=== PATIENT | male | born 1985 | race Caucasian/White ===

== ENCOUNTER 2020-09-21 14:26 | Emergency (ER) | payer BC, SELFPAY ==
[2020-09-21 14:40] VITALS: BP 155/93; PULSE 92; RESP 18; TEMP 37; O2SAT 98
--- NOTE | 2020-09-21 15:00 | ED.GENADULT ---
HPI - General Adult General Chief complaint: Fever Stated complaint: Fever Time Seen by Provider: 09/21/20 15:00 Source: patient Mode of arrival: ambulatory Limitations: no limitations History of Present Illness HPI narrative: 35-year-old male patient presents to the [facility] with complaints of cold symptoms for the past 2 weeks. Patient states he has had nasal congestion, runny nose, fever that has gotten only as high as about 100. Patient states he has had a little bit of a cough and did have a little bit of shortness of breath at times but he does have history of asthma. Patient states he did use an albuterol inhaler every once a while but has not had to use it daily. Patient denies any shortness of breath or chest pain. Patient states he did have to use his albuterol neb treatment 1 time last week but has not had to use it since then. Denies any abdominal pain, nausea vomiting or diarrhea. Denies any pain with urination. Patient denies smoking or any other drugs. Patient states that his girlfriend does smoke in the house. Patient states he has tried some [id number] allergy and cough medication. Patient states he has had a Covid test this past Sunday which came back negative. Patient states that he has quarantine for the 10 days from onset of symptoms which is now completed. Related Data Allergies Allergy/AdvReac Type Severity Reaction Status Date / Time Penicillins Allergy Severe throat Verified 12/29/14 13:08 closes up Review of Systems Review of Systems: Narrative: CONSTITUTIONAL: Positive fever, denies chills, or sweats. EYES: Denies visual changes, redness, or discharge. ENT: Positive rhinorrhea, congestion, denies sore throat, or otalgia. CARDIOVASCULAR: Denies chest pain, palpitations, or edema. RESPIRATORY: Positive mild nonproductive cough positive intermittent dyspnea. GASTROINTESTINAL: Denies abdominal pain, nausea, vomiting, or diarrhea. GENITOURINARY: Denies dysuria or hematuria. SKIN: Denies rash or itching. MUSCULOSKELETAL: Denies back pain, joint pain, or myalgia. NEUROLOGIC: Denies headache, numbness, or weakness. PSYCHIATRIC: Denies anxiety or depression. FOR[facility]LY [facility] Past Medical History Medical History (Updated 09/21/20 @ 15:19 by MARIELLE Peraza) Asthma Hypertension Noncompliant with medications Scoliosis Social History Social History Gender identity (if verbalized by the patient): Male Comments At the time of my signature I agree with nursing past medical history, surgical, social, and family history. There is no relevant family history pertinent to the presenting complaint. Exam Narrative: Exam Narrative: GENERAL: Well-appearing, well-nourished, and in no acute distress. HEAD: Normocephalic, atraumatic. No tenderness noted to frontal or maxillary sinuses on palpation EYES: PERRLA and EOMI. ENT: Nares with erythema and edema noted bilaterally with the right nare swollen shut, no rhinorrhea or epistaxis. Mucous membranes moist. Posterior pharynx with no erythema but a little bit of postnasal drip is noted. Bilateral TMs are clear no erythema or foreign bodies to the canal. NECK: Supple. No lymphadenopathy CHEST: Clear to auscultation. No respiratory distress. Patient able talk clear complete sentences. No tripoding noted. HEART: Regular rate and rhythm. No murmur heard. Normal peripheral pulses. ABDOMEN: Soft, nontender, nondistended, normal active bowel sounds. EXTREMITIES: Normal range of motion. No edema. SKIN: Warm, dry, no rash. NEURO: No focal deficits. Alert and oriented x3. Course Vital Signs Vital signs: Vital Signs Temperature 37.0 C 09/21/20 14:40 Pulse Rate 92 09/21/20 14:40 Respiratory Rate 18 09/21/20 14:40 Blood Pressure 155/93 H 09/21/20 14:40 Pulse Oximetry 98 09/21/20 14:40 Temperature 37.0 C 09/21/20 14:40 Pulse Rate 92 09/21/20 14:40 Respiratory Rate 18 09/21/20
== END 2020-09-21 15:25 | disposition home or self-care (01) ==
PROVIDERS: Emergency Provider Nurse Practitioner Family
DX: J32.9 Chronic sinusitis, unspecified (principal); J06.9 Acute upper respiratory infection, unspecified; J45.909 Unspecified asthma, uncomplicated; I10 Essential (primary) hypertension; Z91.14 Patient's other noncompliance with medication regimen; M41.9 Scoliosis, unspecified
CPT/HCPCS: 87804; 99213; G0463

== ENCOUNTER 2023-11-26 15:46 | Emergency (ER) | payer SELFPAY ==
--- NOTE | 2023-11-26 15:50 | ED.GENADULT ---
HPI - General Adult General Chief complaint: Head Injury Stated complaint: Injured head Time Seen by Provider: 11/26/23 15:50 Source: patient, RN notes reviewed and old records reviewed Mode of arrival: ambulatory Limitations: no limitations History of Present Illness HPI narrative: [age] presents to the [facility] after hitting his head on a shelf. Denies any blurry vision, change in vision. Denies any loss of consciousness. Bleeding controlled Unsure of last tetanus Onset (ago): minute(s) Related Data Home Medications Medication Instructions Recorded Confirmed telmisartan 40 mg tablet 40 mg PO DAILY 11/26/23 11/26/23 trazodone 100 mg tablet 100 mg PO HS PRN Sleep 11/26/23 11/26/23 Allergies Allergy/AdvReac Type Severity Reaction Status Date / Time Penicillins Allergy Severe throat Verified 11/26/23 15:52 closes up Review of Systems Review of Systems: All systems reviewed & are unremarkable except as noted in HPI and below Constitutional: Constitutional: Reports no additional constitutional complaints Eyes: Eyes: Reports no additional eye complaints ENT: Reports system reviewed and no additional complaints, except as documented Cardiovascular: Cardiovascular: Reports no additional cardiovascular complaints, Denies chest pain and Denies dyspnea Respiratory: Respiratory: Reports no additional respiratory complaints, Denies chest congestion, Denies cough and Denies dyspnea Gastrointestinal: Gastrointestinal: Reports no additional gastrointestinal complaints, Denies abdominal pain, Denies nausea and Denies vomiting Musculoskeletal: Musculoskeletal: Reports no additional musculoskeletal complaints Integumentary/Breasts: Skin/Breast: Reports as per HPI Neurologic: Reports system reviewed and no additional complaints, except as documented Psychiatric: Psychiatric: Reports no additional psychiatric complaints Allergic/Immunologic: Allergic/Immunologic: Reports no additional allergic/immunologic complaints PMFSH Past Medical History Medical History Asthma Hypertension Noncompliant with medications Scoliosis Social History Social History Gender identity (if verbalized by the patient): Male Comments At the time of my signature, I reviewed and agree with the nursing past medical, surgical, social, and family history. There is no relevant family history pertinent to the patient complaint. Exam Const: General: cooperative, healthy appearing, comfortable, no acute distress, well developed, alert and well nourished Nutritional Appearance: well nourished Orientation/consciousness: patient oriented x3 Limitations: no limitations HENMT: Head: normal to inspection, No palpable skull fracture present, no hematomas and laceration (Top of head left side, 4 cm) Ears: hearing grossly normal bilaterally and external ears normal Face/Nose/Sinus: Normal external nose present, Normal nares present, Normal nasal mucous membranes and turbinates present, normal facial exam and face symmetric Face and sinus: normal facial exam and face symmetric Mouth: Yes Normal oral and palatal mucosa present, Yes lip normal and Yes moist mucous membranes Throat: posterior oropharynx normal and uvula midline Eyes: General: appearance normal, both eyes and all related structures Alignment and Position: alignment normal Periorbital: periorbital findings normal Pupils: Equal, round and reactive pupils present EOM: EOMs intact bilaterally Neck: Neck: normal visual inspection, full ROM, no lymphadenopathy and no meningeal signs Chest: Chest palpation & inspection: normal inspection of the chest Resp: Effort & Inspection: normal respiratory effort and able to speak in complete sentences Auscultation: clear to auscultation bilaterally, no crackles, no rales, no rhonchi and no wheezes Cardio: Rate: regular rate Rhyt
[2023-11-26 15:54] VITALS: BP 144/108; PULSE 108; RESP 20; TEMP 36.5; O2SAT 100
[2023-11-26] MEDS: TETANUS,DIPHTHERIA,AC PERTUSSIS ADULT (0.5 ML) BOOSTRIX IM (16:16)
== END 2023-11-26 16:29 | disposition home or self-care (01) ==
PROVIDERS: Emergency Provider Nurse Practitioner
DX: S01.01XA Laceration without foreign body of scalp, initial encounter (principal); S09.90XA Unspecified injury of head, initial encounter; W22.09XA Striking against other stationary object, initial encounter; Z23 Encounter for immunization; J45.909 Unspecified asthma, uncomplicated; I10 Essential (primary) hypertension; Z91.148 Patient's other noncompliance with medication regimen for other reason; M41.9 Scoliosis, unspecified
CPT/HCPCS: 12002; 90471; 90715; 99212; G0463

== ENCOUNTER 2024-11-18 01:47 | Emergency (ER) | payer BC, SELFPAY ==
[2024-11-18 02:09] LABS: Basophils Absolute Auto 0.1 K/mm3 (0.0-0.1); Basophils Percent Auto 0.5 % (0.2-1.2); Eosinophils Absolute Auto 0.4 K/mm3 (0-0.3); Eosinophils Percent Auto 3.3 % (0-4.4); Hematocrit 45.9 % (42.0-52.0); Hemoglobin 15.8 g/dL (14.0-18.0); Immature Granulocyte Absolute 0.05 K/mm3 (0.00-0.031); Immature Granulocyte Percent A 0.4 % (0-0.5); Lymphocytes Absolute Auto 3.01 K/mm3 (0.9-3.2); Lymphocytes Percent Auto 25.8 % (18.3-44.2); Mean Corpuscular HGB Conc 34.4 g/dl (32-36); Mean Corpuscular Hemoglobin 31.9 pg (26-34); Mean Corpuscular Volume 92.5 fl (80-100); Mean Platelet Volume 10.1 fl (7.4-10.4); Monocytes Absolute Auto 0.8 K/mm3 (0.1-0.6); Monocytes Percent Auto 7.2 % (2.6-8.5); Neutrophils Absolute Auto 7.3 K/mm3 (1.3-6.7); Neutrophils Percent Auto 62.8 % (45.5-73.1); Platelet Count Result 311 k/mm3 (150-375); Red Blood Count 4.96 M/mm3 (4.6-6.20); Red Cell Distribution Width 12.7 % (11.5-14.5); White Blood Count 11.7 K/mm3 (4.5-10.0)
[2024-11-18 02:20] LABS: Alanine Aminotransferase 55 U/L (6-50); Albumin Level 4.2 g/dL (3.5-5.1); Alkaline Phosphatase 104 U/L (38-126); Anion Gap 5 mmol/L (4-12); Aspartate Amino Transferase 57 U/L (17-59); Bilirubin,Total 0.7 mg/dL (0.2-1.3); Blood Urea Nitrogen 14 mg/dL (9-20); Carbon Dioxide 25 mmol/L (22-30); Chloride 109 mmol/L (98-107); Estimated CRCL calculation 115 ml/min; Estimated Glomerular Filt Rate > 60; Glucose 86 mg/dL (65-110); Lipase 311 U/L (23-300); Potassium 3.8 mmol/L (3.4-5.0); Sodium 139 mmol/L (137-145)
[2024-11-18 02:31] LABS: Add Urine Microscopic? YES; Appearance Urine Clear (Clear); Bilirubin Urine Negative (Negative); Blood Urine Negative (Negative); Color Urine Yellow (Yellow); Glucose Urine UA Negative (Negative); Ketones Urine Negative (Negative); Leukocyte Esterase Ur 1+ LEU/UL (Negative); Nitrate Urine Negative (Negative); Non Pathogenic Casts 0-2; Protein Urine Trace mg/dL (Negative); RBC Urine 0-2 /hpf (0-2); Specific Grav Ur 1.025 (1.001-1.035); Squamous Epithelial Cell Urine Occasional /hpf (Few); WBC Urine 51-100 /hpf (0-3); pH Urine 5.5 (5.0-9.0)
[2024-11-18 02:34] LABS: Bacteria Urine Trace /hpf
[2024-11-18 05:34] VITALS: BP 129/88; PULSE 71; RESP 16; TEMP 36.3; O2SAT 99
[2024-11-18 06:34] VITALS: BP 139/94; PULSE 66; RESP 15; O2SAT 98
--- NOTE | 2024-11-18 08:25 | ED_ITS ---
HPI - Back Pain/Injury General Chief Complaint: Back Pain/Injury Stated Complaint: pain right back in kidney area Time Seen by Provider: 11/18/24 08:06 Source: patient Mode of arrival: ambulatory Limitations: no limitations History of Present Illness HPI Narrative: Patient presents with right back/flank pain. He was seen at [facility] for the same on Sunday and states he had a CT with contrast performed but no reason for his symptoms was identified and he continues to have pain, now consistent and not getting better. Pain slightly worse with rotational movement. History of scoliosis for which surgery had been recommended at one point but he is deferring/declining/opting to not proceed with at present. Previous history of a kidney stone approximately 5-6 years ago requiring a stent x1 week and 2 additional procedures to be performed. This was done by a urologist at [facility] but he does not routinely follow with them. No fever, hematuria/dysuria/urgency/frequency. No history of UTI or pyelonephritis. No trauma, malignancy, bowel/bladder incontinence, saddle anesthesia, paresthesias, abdominal pain, chronic steroid use, IVDU, syncope. States the pain feels similar to when he had a kidney stone. Has been taking naproxen though last dose was yesterday. Related Data Home Medications ?Medication ?Instructions ?Recorded ?Confirmed ?Last Taken ?Type telmisartan 40 mg tablet 40 mg PO DAILY 11/26/23 11/26/23 Unknown History trazodone 100 mg tablet 100 mg PO HS PRN Sleep 11/26/23 11/26/23 Unknown History Allergies Allergy/AdvReac Type Severity Reaction Status Date / Time Penicillins Allergy Severe throat Verified 11/18/24 06:35 closes up PMFSH Past Medical History Medical History Kidney stone approximately [id number] at [facility]; s/p stent (subsequently removed) and additional procedure Scoliosis Asthma Hypertension Noncompliant with medications Social History Social History Gender identity (if verbalized by the patient): Male Exam 2 Narrative: GENERAL: Well-appearing, well-nourished, and in no acute distress. HEAD: Normocephalic, atraumatic. EYES: Non injected, non icteric ENT: Nares clear, no rhinorrhea or epistaxis. NECK: Supple. CHEST: Speaking in full sentences. No respiratory distress. HEART: Regular rate and rhythm. . BACK: No bony stepoffs or obvious deformities. No TTP midline. Demonstrates flexion/extension and rotational movement. Straight leg test negative bilaterally. : Right CVA tenderness; negative left CVA tenderness ABDOMEN: Soft, nondistended. EXTREMITIES: Normal range of motion. No lower extremity edema. SKIN: Warm, dry, no rash. NEURO: No focal deficits. Alert and oriented x3. sensation intact throughout lower extremities and along back. 5/5 strength bilaterally with ankle dorsi/plantarflexion, knee flexion/extension, hip flexion/abduction/adduction PSYCH: Normal mood and affect. Course Vital Signs Vital signs: Vital Signs Temperature 97.3 F L 11/18/24 05:34 Pulse Rate 71 11/18/24 05:34 Respiratory Rate 16 11/18/24 05:34 Blood Pressure 129/88 11/18/24 05:34 Pulse Oximetry 99 11/18/24 05:34 Temperature 97.3 F L 11/18/24 05:34 Pulse Rate 60 11/18/24 09:25 Respiratory Rate 16 11/18/24 09:25 Blood Pressure 139/90 11/18/24 09:25 Pulse Oximetry 99 11/18/24 09:25 MDM - Back Pain/Injury MDM Narrative Medical decision making narrative: Patient presents with right sided flank/back pain. He was seen at [facility] ED for the same on Sunday and underwent CT imaging which did not identify an etiology. In the emergency department they are afebrile with vital signs within normal limits. Back has no deformities, external skin changes, or signs of trauma. No tenderness is noted on palpation of the spinous processes which are midline. Lumbar paraspinal muscles are not tender and are without spasm. Patient demonstrates flexion, extension, and [id number] rotation of the lumbar spine. Sensation to the lower extremities is normal bilaterally. Dorsi/plantar flexion is normal bilaterally. Straight leg raise test is negative bilaterally. They do not have any other red flags for fracture, infection (e.g. spinal epidural abscess), or aortic/vascular: Age, no trauma, not on chronic steroids, no cancer, no fever, IV drug use, immunosuppression, abdominal pain, tearing pain, syncope, or urinary symptoms. Given this, will defer further imaging at this time. Patient's urine has trace bacteriuria as well as 1+ leukocyte esterase and significant white blood cells. This is concerning for a UTI which I suspect has become pyelonephritis especially given patient's location and description of right flank pain and his CVA tenderness on the right. He also has a leukocytosis. He had a negative CT scan at [facility] by report and does not have hematuria either grossly or microscopically. Low suspicion for kidney stone at this time given these things. Opiate medication initially ordered for patient but he declines. Will give ketorolac instead. Patient given first dose of antibiotic in the ED with the rest of the course prescribed in addition to acetaminophen Rx. advised follow up and ED return precautions. Differential Diagnosis Differential diagnosis: Likely lumbar radiculopathy, sciatica, strain of lumbar region, renal colic and pyelonephritis Lab Data Attestation: I reviewed the patient's lab results. Lab results narrative: Lipase slightly elevated though not to a degree to suggest pancreatitis and this is not patient's location of pain 11/18/24 01:58 11/18/24 01:58 Labs: Lab Results 11/18/24 11/18/24 Range/Units 01:58 02:20 WBC 11.7 H (4.5-10.0) K/mm3 RBC 4.96 (4.6-6.20) M/mm3 Hgb 15.8 (14.0-18.0) g/dL Hct 45.9 (42.0-52.0) % MCV 92.5 (80-100) fl MCH 31.9 (26-34) pg MCHC 34.4 (32-36) g/dl RDW 12.7 (11.5-14.5) % Plt Count 311 (150-375) k/mm3 MPV 10.1 (7.4-10.4) fl Immature Gran % (Auto) 0.4 (0-0.5) % Neut % (Auto) 62.8 (45.5-73.1) % Lymph % (Auto) 25.8 (18.3-44.2) % Bailey % (Auto) 7.2 (2.6-8.5) % Eos % (Auto) 3.3 (0-4.4) % Baso % (Auto) 0.5 (0.2-1.2) % Lymph # (Auto) 3.01 (0.9-3.2) K/mm3 Bailey # (Auto) 0.8 H (0.1-0.6) K/mm3 Eos # (Auto) 0.4 H (0-0.3) K/mm3 Baso # (Auto) 0.1 (0.0-0.1) K/mm3 Abs Immat Gran (auto) 0.05 H (0.00-0.031) K/mm3 Absolute Neuts (auto) 7.3 H (1.3-6.7) K/mm3 Absolute Nucleated RBC 0.000 (0.0-0.012) K/mm3 Nucleated RBC % 0.0 (0.0-0.2) % Sodium 139 (137-145) mmol/L Potassium 3.8 (3.4-5.0) mmol/L Chloride 109 H (98-107) mmol/L Carbon Dioxide 25 (22-30) mmol/L Anion Gap 5 (4-12) mmol/L BUN 14 (9-20) mg/dL Creatinine 0.90 (0.7-1.3) mg/dL Estim Creat Clear Calc 115 ml/min Estimated GFR > 60 (59 - ) Glucose 86 (65-110) mg/dL Calcium 9.0 (8.4-10.2) mg/dL Total Bilirubin 0.7 (0.2-1.3) mg/dL AST 57 (17-59) U/L ALT 55 H (6-50) U/L Alkaline Phosphatase 104 (38-126) U/L Total Protein 8.0 (6.3-8.2) g/dL Albumin 4.2 (3.5-5.1) g/dL Lipase 311 H (23-300) U/L Urine Color Yellow (Yellow) Urine Appearance Clear (Clear) Urine pH 5.5 (5.0-9.0) Ur Specific Cutler 1.025 (1.001-1.035) Urine Protein Trace (Negative) mg/dL Urine Glucose (UA) Negative (Negative) mg/dL Urine Ketones Negative (Negative) mg/dL Ur Blood (Man) Negative (Negative) Urine Nitrate Negative (Negative) Urine Bilirubin Negative (Negative) Urine Urobilinogen 1.0 (<2.0) mg/dL Leukocyte Esterase Rfl 1+ H (Negative) L[place]ON/UL Urine RBC 0-2 (0-2) /hpf Urine WBC 51-100 H (0-3) /hpf Ur Squamous Epith Cells Occasional (Few) /hpf Urine Bacteria Trace /hpf Urine Casts 0-2 Discharge Plan Discharge Clinical Impression: Right-sided back pain, Elevated ALT measurement, Pyelonephritis, Leukocytosis Patient Disposition: Home, Self-Care Condition: Stable Instructions: Antibiotic Form, Kidney Infection (ED), Leukocytosis (ED), Flank Pain (ED) Additional Instructions: Acetaminophen/Tylenol (maximum 4000 mg per day) is safe to take with NSAIDs (ibuprofen/Motrin/naproxen/etc) for pain relief. Your urine was concerning for an infection based on some trace bacteria seen as well as white blood cells and a byproduct the bacteria make. When a urinary tract infection a since to the kidney we call this pyelonephritis. This is treated like a urinary tract infection but with a longer duration of antibiotic course. You received your 1st dose in the emergency department with rest the course prescribed. You will be notified if based on the urine culture this antibiotic needs to be changed to an alternative regimen in the next 48-72 hours. Follow-up with primary care physician. If you do not have 1 the name of the doctors listed below. Return to the emergency department with any new or worsening symptoms. Patient Language: Romanian Prescriptions: New sulfamethoxazole-trimethoprim [Bactrim DS] 800-160 mg tablet 1 tablet PO Q12H 14 Days Qty: 27 0RF Rx Instructions: Patient received 1st dose in the emergency department 11/18/2024 a.m. acetaminophen 500 mg capsule 1,000 mg PO Q6H PRN (Reason: pain) Qty: 30 0RF No Action trazodone 100 mg tablet 100 mg PO HS PRN (Reason: Sleep) telmisartan 40 mg tablet 40 mg PO DAILY Follow-up/Referrals: Prashanth Alamo MD [Physician] - UNKNOWN,DOCTOR [Primary Care Provider] - Stand Alone Forms: Work/School Release IP Time of Disposition: 08:47
[2024-11-18] MEDS: SULFAMETHOXAZOLE/TRIMETHOPRIM 800/160 MG DS TABLET 1 TAB PO (08:56)
[2024-11-18] MEDS: KETOROLAC 15 MG/ML VIAL (*BKC) IV PUSH (09:18)
[2024-11-18 09:25] VITALS: BP 139/90; PULSE 60; RESP 16; O2SAT 99
--- OUTSIDE RECORDS SUMMARY | 2024-11-25 02:28 | XMS_ITS | Encounter Summary ---
Author Organization [facility] Address [address] [place] [address] Care Team Providers Care Machine Maintenance Supervisor Name Role Phone Unavailable Primary Care Provider Unavailabl e Reason for Visit * Reason Comments Flank Pain Right sided flank pa in began last night. Hx of kidney stones. Pain feels the same. Denies nausea, vomiting, fever and urinary symptoms. * Auth/Cert (Routine) Specialty Diagnoses / Procedures Referred By Contac t Referred To Contact Emergency Medicine [facility] Emergency Dept [address] [place] [address] Referral ID Status Reason Start Date Expiration Date Visits Re quested Visits Authorized [id number] 1 1 Encounter Details Date Type Department Care Team (Late st Contact Info) Description 11/15/2024 7:12 AM SIMULATION TECHNICIAN - 11/15/2024 9:27 AM [facility] Emergency [facility] Emergency Department [address] [place] [address] [place] [address] [place] [id number] Flank pain (Primary Dx) Discharge Disposition: Home or Self Care Social History Tobacco Use Types Packs/Day Years Used Date Smoking Tobacco: Never Alcohol Use Standard Drinks/Week Comments Not Currently 0 (1 standard drink = 0.6 oz pur e alcohol) Feeling Safe Answer Date Recorded Are you in a relationship wi th someone who hurts you emotionally and/or physically? No 11/13/2024 Sex and Gender Information Value Date Recorded Sex Assigned at Not on file Gender Identity Not on file Sexual Orientation Not on file documented as of this encounter Last Filed Vital Signs Vital Sign Reading Time Taken Comments Blood Pressure 121/88 11/15/2024 8:30 AM SIMULATION TECHNICIAN Pulse 57 11/15/2024 8:30 AM SIMULATION TECHNICIAN Temperature 36.6 ??C (97.8 ??F) 11/15/2024 9:08 AM CS T Respiratory Rate 16 11/15/2024 8:30 AM SIMULATION TECHNICIAN Oxygen Saturation 96% 11/15/2024 8:30 AM SIMULATION TECHNICIAN Inhaled Oxygen Concentration - - Weight 102.1 kg (225 lb) 11/15/2024 6:16 AM SIMULATION TECHNICIAN Height 175.3 cm (5' 9 ) 11/15/2024 6:16 AM SIMULATION TECHNICIAN Body Mass Index 33.23 11/15/2024 6:16 AM SIMULATION TECHNICIAN documented in this encounter Discharge Instructions * Discharge Instructions* Ron Meehan DO - 11/15/2024 8:48 AM SIMULATION TECHNICIAN Ice/moist heat to area 10 minutes every 2 hours Rx attached We will send a urine culture and notify you if there is positive results. You have been educated on red flags and returning criteria construction worker to assist with PCP LATION TECHNICIAN * Attachments The following attachments cannot be sent through Care Everywhere. * Flank Pain (Northern Irish) documented in this encounter Medications at Time of Discharge Medication Sig Dispensed Refills Start Date End Date naproxen (NAPROSYN) 375 mg tablet Take 1 Tablet (375 mg) by mouth 2 times daily with meals for 7 days. 14 Tablet 11/15/2024 11/22/2024 tamsulosin (FLOMAX) 0.4 mg capsule Take 1 Capsule (0.4 mg) by mouth daily for 7 days. 7 Capsule 11/15/2024 11/22/2024 documented as of this encounter ED Notes * Nas Guido RN - 11/15/2024 9:08 AM CST Discharge paperwork reviewed with patient. Patient verbalizes understanding. All questions answered. LATION TECHNICIAN * Nas Guido RN - 11/15/2024 8:34 AM CST Shefali CAMARILLO at bedside with update on POC. LATION TECHNICIAN * Ron Meehan, DO - 11/15/2024 7:28 AM CST HISTORY OF PRESENT ILLNESS Documented Triage Chief Complaint: Flank pain 7:28 AM: Kelvin Beckham is a 39 y.o. male with a history of kidney stone, HTN, asthma, who presents tot Emergency Department with complaints of flank pain. Pt reports R flank pain beginning yesterday, but states it worsened last night at work. Pt states the pain does not radiate and stays in his R flank. Pt reports he had kidney stones 5-6 years ago, and states that this pain feels similar. Pt denies any nausea, vomiting, or diarrhea. Pt reports an allergy to penicillin. Physician(s): No primary care provider on file. History provided by: The patient and medical records Arrived by: Private vehicle Arrived from: Home PAST MEDICAL HISTORY REVIEWED MEDICAL: Patient has a past medical history of Asthma, Hypertension, and Kidney stone. SURGICAL: Patient has no past surgical history on file. ALLERGIES Penicillins PHYSICAL EXAM INITIAL VS BP: (!) 140/102 (11/15/24615), Heart Rate: 60 bpm (11/15/24615), Resp: 20 (11/15/24615), Pulse: 60 (11/15/24615), Temp: 97.4 ??F (36.3 ??C) (11/15/24615), Temp src: Oral (11/15/24615), SpO2: 100 % (11/15/24615), Height: 5' 9 (175.3 cm) (11/15/24615), Weight: 102.1 kg (225 lb) (11/15/24615), BMI (Calculated): (!) 33.22 (11/15/24615) No LMP for male patient. Physical Exam Vitals reviewed. HENT: Head: Normocephalic and atraumatic. Right Ear: External ear normal. Left Ear: External ear normal. Nose: Nose normal. Eyes: Conjunctiva/sclera: Conjunctivae normal. Pupils: Pupils are equal, round, and reactive to light. Neck: Thyroid: No thyromegaly. Vascular: No JVD. Trachea: No tracheal deviation. Cardiovascular: Rate and Rhythm: Normal rate and regular rhythm. Heart sounds: No murmur heard. Pulmonary: Effort: Pulmonary effort is normal. Breath sounds: Normal breath sounds. No stridor. Abdominal: General: Bowel sounds are normal. There is no distension. Palpations: Abdomen is soft. There is no mass. Tenderness: There is no abdominal tenderness. There is no right CVA tenderness, left CVA tenderness, guarding or rebound. Hernia: No hernia is present. Comments: No pulsatile mass Genitourinary: Penis: Normal. Testes: Normal. Musculoskeletal: General: No swelling, tenderness, deformity or signs of injury. Cervical back: Normal range of motion and neck supple. Right lower leg: No edema. Left lower leg: No edema. Lymphadenopathy: Cervical: No cervical adenopathy. Skin: General: Skin is warm and dry. Neurological: Mental Status: He is alert and oriented to person, place, and time. Cranial Nerves: No cranial nerve deficit. Sensory: No sensory deficit. Motor: No abnormal muscle tone. Coordination: Coordination normal. Deep Tendon Reflexes: Reflexes normal. Psychiatric: Behavior: Behavior normal. DIAGNOSTICS LAB: URINALYSIS WITH REFLEX MICROSCOPIC - Abnormal Result Value COLOR UA Yellow CLARITY UA Clear SPECIFIC GRAVITY UA 1.021 PH UA 5.0 LEUKOCYTE ESTERASE UA 1+ (*) NITRITE UA Negative PROTEIN UA Negative GLUCOSE UA Negative KETONES UA Trace (*) UROBILINOGEN UA Normal BILIRUBIN UA Negative BLOOD UA Negative WBC UA 26-50 (*) RBC UA 3-5 (*) BACTERIA UA Negative EPITHELIAL CELLS, URINE 0-5 CBC WITH DIFFERENTIAL - Abnormal WBC 12.5 (*) RBC 4.72 HEMOGLOBIN 14.9 HEMATOCRIT 43.4 MCV 91.9 MCH 31.6 MCHC 34.3 RDW 13.0 RDW-STDEV 44.1 PLATELETS 314 MPV 9.8 NEUTROPHILS 64 LYMPHOCYTES 24 MONOCYTES 8 EOSINOPHILS 4 BASOPHILS 1 IMMATURE GRANULOCYTES 0 NEUTROPHIL ABSOLUTE 7.94 (*) LYMPHOCYTE ABSOLUTE 2.95 MONOCYTE ABSOLUTE 0.98 EOSINOPHIL ABSOLUTE 0.49 BASOPHILS ABSOLUTE 0.06 IMMATURE GRANULOCYTES ABSOLUTE 0.05 (*) COMPREHENSIVE METABOLIC PANEL - Abnormal SODIUM 137 POTASSIUM 3.7 CHLORIDE 101 CO2 27 CALCIUM 9.7 BUN 17 CREATININE 0.98 GLUCOSE 94 TOTAL PROTEIN 7.8 ALBUMIN 4.4 BILIRUBIN TOTAL 0.6 ALKALINE PHOSPHATASE 112 AST 50 (*) ALT 51 (*) GFR >60 ANION GAP 9 POC CREATININE - Normal CREATININE POC 1.10 GFR POC >60 URINE CULTURE DRUG SCREEN, URINE POC CREATININE RADIOLOGY: CT ABDOMEN PELVIS W CONTRAST Radiologist Impression IMPRESSION: Multiple bilateral nonobstructing renal calculi seen, greater on the left. No evidence of obstructive uropathy. Mild bladder wall thickening may be related to underdistention. Mild cortical irregularity of the right L2 transverse process may represent an acute fracture given the patient's history of right flank pain. Clinical correlation recommended. The examination was performed with the adjustment of mA according to the patient size and/or the use of Iterative Reconstruction Technique. DICTATION LOCATION: Location 1 - [facility] \ PROCEDURES Procedures MEDICAL DECISION MAKING AND PLAN OF CARE --On initial evaluation, saw and examined the patient. Discussed plan for labs and imaging. ED provider and ED nurse verbally discussed patient plan of care at this time. ED Course as of 11/15/24 0925 Sat Nov 15, 2024 0824 CBC white count 12.5. Hemoglobin 14.9. CMP normal. Creatinine 1.1. Urine illustrates 1+ leukocytes. 26-50 white cells. No bacteria. Will send culture. Nitrates normal. Reviewed CT imaging no acute kidney stone or acute base findings. Toradol given. [PP] 7198 Educated patient on his lab and imaging results. Discussed plan for discharge. [SH] ED Course User Index [PP] Ron Meehan DO [SH] Osbaldo Holguin Scribe Medical Decision Making 39-year-old with history of kidney stones. Flank pain. Clinical examination illustrates no acute findings. Urine with a few white cells we will send culture no treatment at this time. Educated patient. Labs/CT imaging with no acute base findings. Will Rx with outpatient follow-up. construction worker assistance with PCP. Educated on red flags and returning criteria Amount and/or Complexity of Data Reviewed Labs: ordered. Decision-making details documented in ED Course. Radiology: ordered and independent interpretation performed. Decision-making details documented in ED Course. Risk Prescription drug management. Clinical Scoring & Consults Medications Administered During the ED Stay from 11/15/2024 0604 to 11/15/2024 0925 Date/Time Order Dose Route Action 11/15/2024 0730 SIMULATION TECHNICIAN sodium chloride 0.9% bolus solution 1,000 mL 1,000 mL IV Bolus 11/15/2024 0753 SIMULATION TECHNICIAN sodium chloride flush injection 10 mL 10 mL IV Given 11/15/2024 0753 SIMULATION TECHNICIAN iopamidoL (ISOVUE-300) 61% injection (drawn from multi-use bulk pack) 100 mL 100 mL IV Contrast Given 11/15/2024 0815 SIMULATION TECHNICIAN ketorolac (TORADOL) injection 10 mg 10 mg IV Given . New Prescriptions for this Encounter NAPROXEN (NAPROSYN) 375 MG TABLET Take 1 Tablet (375 mg) by mouth 2 times daily with meals for 7 days. TAMSULOSIN (FLOMAX) 0.4 MG CAPSULE Take 1 Capsule (0.4 mg) by mouth daily for 7 days. LAST VS BP: 121/88 (11/15/24829), Heart Rate: (!) 57 bpm (11/15/24829), Resp: 16 (11/15/24829), Pulse: (!) 57 (11/15/24829), Temp: 97.8 ??F (36.6 ??C) (11/15/24907), Temp src: Oral (11/15/24907),SpO2: 96 % (11/15/24829) CLINICAL IMPRESSION Final diagnoses: [R10.9] Flank pain (Primary) DISPOSITION, EDUCATION AND MEDICATION RECONCILIATION Medications reconciled. See after visit summary for patient education on discharged patients. ED Disposition ED Disposition Discharge Condition Stable User Ron Meehan DO Date/Time Sat Nov 15, 2024 8:47 AM Comment -- ATTESTATION STATEMENTS This note has been prepared by Osbaldo Holguin acting as a scribe for Dr. Ron Meehan on 11/15/2024 at 7:33 AM. The scribe's documentation has been prepared under my direction and personally reviewed by me,, in its entirety on 11/15/24 at 9:25 AM. I confirm that the note above accurately reflects all work, treatment, procedures, and medical decision making performed by me. LATION TECHNICIAN * Nas Guido RN - 11/15/2024 7:22 AM CST Chief Complaint Patient presents with Flank Pain Right sided flank pain began last night. Hx of kidney stones. Pain feels the same. Denies nausea, vomiting, fever and urinary symptoms. This RN agrees with triage note above. A&Ox4 (person, place, time, and situation). Respirations even and unlabored. VSS. Skin appropriate for ethnicity, warm, and dry. PMS intact. NAD noted. Pt placed on continuous monitor. Stretcher in low and locked position. Call light within reach. LATION TECHNICIAN documented in this encounter Plan of Treatment Not on file documented as of this encounter Procedures Procedure Name Priority Date/Time Associated Diagnosis Comments CT ABDOMEN PELVIS W CONTRAST Stat 11/15/2024 7:52 AM SIMULATION TECHNICIAN POC CREATININE Stat 11/15/2024 7:34 AM SIMULATION TECHNICIAN CBC WITH DIFFERENTIAL Stat 11/15/2024 7:29 AM SIMULATION TECHNICIAN COMPREHENSIVE METABOLIC PANEL Stat 11/15/2024 7:29 AM SIMULATION TECHNICIAN DRUG SCREEN, URINE Stat 11/15/2024 6: 36 AM SIMULATION TECHNICIAN URINALYSIS W/REFLEX MICROSCOPIC Stat 11/15/2024 6:36 AM SIMULATION TECHNICIAN URINE CULTURE Stat 11/15/2024 6:36 AM SIMULATION TECHNICIAN documented in this encounter Results * CT ABDOMEN PELVIS W CONTRAST (11/15/2024 7:52 AM SIMULATION TECHNICIAN) Anatomical Region Laterality Modality Abdomen Computed Tomogra phy 11/15/2024 7:53 AM SIMULATION TECHNICIAN Impressions 11/15/2024 8:11 AM SIMULATION TECHNICIAN IMPRESSION: ?? Multiple bilateral nonobstructing renal calculi seen, greater on the left. No evidence of obstructive uropathy. Mild bladder wall thickening may be related to underdistention. Mild cortical irregularity of the right L2 transverse process may represent an acute fracture given the patient's history of right flank pain. Clinical correlation recommended. The examination was performed with the adjustment of mA according to the patient size and/or the use of Iterative Reconstruction Technique. ?? DICTATION LOCATION: Location 1 - [facility] 11/15/2024 8:11 AM SIMULATION TECHNICIAN COMPUTED TOMOGRAPHY OF THE ABDOMEN AND PELVIS WITH IV CONTRAST DATE: 11/15/2024 7:52 AM HISTORY: 39-year-old male with flank pain COMPARISON: None TECHNIQUE: ?? Axial CT images were obtained from the diaphragm through the symphysis pubis following the administration of intravenous contrast material. Coronal and sagittal reformatted images were performed. CONTRAST: IOPAMIDOL 61 % INTRAVENOUS SOLUTION (MULTI-DOSE BULK PACK) Given:100 mL FINDINGS: ?? The lung bases are clear. There is elevation of the right hemidiaphragm. The liver, spleen, and adrenal glands are unremarkable. There is fatty infiltration of the pancreatic head and neck. No focal pancreatic lesions are seen. No calcified gallstones are noted. Multiple nonobstructing calculi are noted in the inferior pole of the left kidney, measuring up to 8 mm and smaller each. There is also a punctate nonobstructing calculus in the inferior pole of the right kidney. No obstructing calculi seen. There is no hydronephrosis or hydroureter. No focal renal lesions are noted. There is a small diverticulum off the second portion of the duodenum. There is no evidence of bowel wall thickening or dilatation. No evidence of acute appendicitis. No lymphadenopathy or free fluid is noted. There is mild bladder wall thickening, which may be related to underdistention. There is mild cortical irregularity and slight angulation of the right L2 transverse process (series 302, image 294). Bony fusion of the sacroiliac joints and multilevel bony fusion of the facet joints noted. Procedure Note Jayshree Bates MD - 11/15/2024 COMPUTED TOMOGRAPHY OF THE ABDOMEN AND PELVIS WITH IV CONTRAST DATE: 11/15/2024 7:52 AM HISTORY: 39-year-old male with flank pain COMPARISON: None TECHNIQUE: Axial CT images were obtained from the diaphragm through the symphysis pubis following the administration of intravenous contrast material. Coronal and sagittal reformatted images were performed. CONTRAST: IOPAMIDOL 61 % INTRAVENOUS SOLUTION (MULTI-DOSE BULK PACK) Given:100 mL FINDINGS: The lung bases are clear. There is elevation of the right hemidiaphragm. The liver, spleen, and adrenal glands are unremarkable. There is fatty infiltration of the pancreatic head and neck. No focal pancreatic lesions are seen. No calcified gallstones are noted. Multiple nonobstructing calculi are noted in the inferior pole of the left kidney, measuring up to 8 mm and smaller each. There is also a punctate nonobstructing calculus in the inferior pole of the right kidney. No obstructing calculi seen. There is no hydronephrosis or hydroureter. No focal renal lesions are noted. There is a small diverticulum off the second portion of the duodenum. There is no evidence of bowel wall thickening or dilatation. No evidence of acute appendicitis. No lymphadenopathy or free fluid is noted. There is mild bladder wall thickening, which may be related to underdistention. There is mild cortical irregularity and slight angulation of the right L2 transverse process (series 302, image 294). Bony fusion of the sacroiliac joints and multilevel bony fusion of the facet joints noted. IMPRESSION: Multiple bilateral nonobstructing renal calculi seen, greater on the left. No evidence of obstructive uropathy. Mild bladder wall thickening may be related to underdistention. Mild cortical irregularity of the right L2 transverse process may represent an acute fracture given the patient's history of right flank pain. Clinical correlation recommended. The examination was performed with the adjustment of mA according to the patient size and/or the use of Iterative Reconstruction Technique. DICTATION LOCATION: Location 1 - [facility] Ron Meehan DO CT ORDERABLES * POC CREATININE (11/15/2024 7:34 AM SIMULATION TECHNICIAN) CREATININE POC 1.10 0.70 - 1.20 mg/dL 11/15/2024 7:34 AM SIMULATION TECHNICIAN [facility] GFR POC >60 >=60 mL/min/1.7 3 sq meter 11/15/2024 7:34 AM SIMULATION TECHNICIAN [facility] Comment:eGFR calculated with 2020 CKD-EPI equation. Vegetarian diet, extremely high or low muscle mass, and may affect results. Cystatin C with Glomerular Filtration Rate is a suitable alternative for these patients. Blood, whole 11/15/2024 7:34 AM SIMULATION TECHNICIAN 11/15/2024 7:40 AM SIMULATION TECHNICIAN Ron Meehan DO POINT OF CARE TESTI NG [facility] - [facility]# [id number] [address] [facility] [place] [address] * (ABNORMAL) COMPREHENSIVE METABOLIC PANEL (11/15/2024 7:29 AM SIMULATION TECHNICIAN) SODIUM 137 136 - 145 mmol/L 11/15/2024 8:21 AM [facility] - . [facility] POTASSIUM 3.7 3.5 - 5.0 mmol/L 11/15/2024 8:21 AM [facility] - . [facility] CHLORIDE 101 98 - 107 mmol/L 11/15/2024 8:21 AM [facility] CO2 27 22 - 29 mmol/L 11/15/2024 8:21 AM [facility] - . [facility] CALCIUM 9.7 8.6 - 10.2 mg/dL 11/15/2024 8:21 AM [facility] - . [facility] BUN 17 6 - 20 mg/dL 11/15/2024 8:21 AM [facility] - . [facility] CREATININE 0.98 0.67 - 1.17 mg/dL 11/15/2024 8:21 AM [facility] - . [facility] GLUCOSE 94 74 - 99 mg/dL 11/15/2024 8:21 AM [facility] - . [facility] TOTAL PROTEIN 7.8 6.7 - 8.6 g/dL 11/15/2024 8:21 AM [facility] - . [facility] ALBUMIN 4.4 3.5 - 5.2 g/dL 11/15/2024 8:21 AM [facility] - . [facility] BILIRUBIN TOTAL 0.6 0.3 - 1.2 mg/dL 11/15/2024 8:21 AM [facility] - . [facility] ALKALINE PHOSPHATASE 112 40 - 129 U/L 11/15/2024 8:21 AM [facility] AST 50(H) <41 U/L 11/15/2024 8:21 AM [facility] ALT 51(H) <42 U/L 11/15/2024 8:21 AM [facility] GFR >60 >=60 mL/min/1.7 3 sq meter 11/15/2024 8:21 AM [facility] Comment:eGFR calculated with 2020 CKD-EPI equation. Vegetarian diet, extremely high or low muscle mass, and may affect results. Cystatin C with Glomerular Filtration Rate is a suitable alternative for these patients. ANION GAP 9 8 - 16 mmol/L 11/15/2024 8:21 AM [facility] [place] [facility] Blood Venipuncture / Unknown 11/15/2024 7:29 AM SIMULATION TECHNICIAN 11/15/2024 7:33 AM [facility] - 11/15/2024 8:21 AM [facility] Samples containing indocyanine green cause interferences on Total and/or Direct Bilirubin and must not be measured. Ron Meehan DO CHEMISTRY ORDERABLE S [facility]# [id number] [address] [facility] [address] * (ABNORMAL) CBC WITH DIFFERENTIAL (11/15/2024 7:29 AM SIMULATION TECHNICIAN) WBC 12.5(H) 4.0 - 9.8 K/uL 11/15/2024 7:45 AM [facility] [place] [facility] RBC 4.72 4.50 - 5.40 M/uL 11/15/2024 7:45 AM [facility] [place] [facility] HEMOGLOBIN 14.9 13.6 - 16.5 g/dL 11/15/2024 7:45 AM [facility] HEMATOCRIT 43.4 40.0 - 48.0 % 11/15/2024 7:45 AM [facility] [place] [facility] MCV 91.9 82.0 - 99.0 fL 11/15/2024 7:45 AM SIMULATION TECHNICIAN [facility] MCH 31.6 27.2 - 32.6 pg 11/15/2024 7:45 AM SIMULATION TECHNICIAN [facility] MCHC 34.3 31.5 - 35.5 g/dL 11/15/2024 7:45 AM SIMULATION TECHNICIAN [facility] RDW 13.0 11.5 - 14.5 % 11/15/2024 7:45 AM SIMULATION TECHNICIAN [facility] RDW-STDEV 44.1 37.1 - 48.7 fL 11/15/2024 7:45 AM SIMULATION TECHNICIAN [facility] PLATELETS 314 140 - 350 K/uL 11/15/2024 7:45 AM SIMULATION TECHNICIAN [facility] MPV 9.8 9.3 - 12.4 fL 11/15/2024 7:45 AM SIMULATION TECHNICIAN [facility] NEUTROPHILS 64 % 11/15/2024 7:45 AM SIMULATION TECHNICIAN [facility] LYMPHOCYTES 24 % 11/15/2024 7:45 AM SIMULATION TECHNICIAN [facility] MONOCYTES 8 % 11/15/2024 7:45 AM SIMULATION TECHNICIAN [facility] EOSINOPHILS 4 % 11/15/2024 7:45 AM SIMULATION TECHNICIAN [facility] BASOPHILS 1 % 11/15/2024 7:45 AM SIMULATION TECHNICIAN [facility] IMMATURE GRANULOCYTES 0 % 11/15/2024 7:45 AM SIMULATION TECHNICIAN [facility] NEUTROPHIL ABSOLUTE 7.94(H) 1.90 - 7.00 K/uL 11/15/2024 7:45 AM SIMULATION TECHNICIAN [facility] LYMPHOCYTE ABSOLUTE 2.95 0.70 - 4.50 K/uL 11/15/2024 7:45 AM SIMULATION TECHNICIAN [facility] MONOCYTE ABSOLUTE 0.98 0.10 - 1.30 K/uL 11/15/2024 7:45 AM SIMULATION TECHNICIAN [facility] EOSINOPHIL ABSOLUTE 0.49 0.00 - 0.70 K/uL 11/15/2024 7:45 AM SIMULATION TECHNICIAN [facility] BASOPHILS ABSOLUTE 0.06 0.00 - 0.20 K/uL 11/15/2024 7:45 AM [facility] IMMATURE GRANULOCYTES ABSOLUTE 0.05(H) 0.00 - 0.03 K/uL 11/15/2024 7:45 AM [facility] Blood Venipuncture / Unknown 11/15/2024 7:29 AM SIMULATION TECHNICIAN 11/15/2024 7:33 AM SIMULATION TECHNICIAN Ron Meehan DO HEMATOLOGY ORDERABL ES Performing Organization Address [facility]/ZIP Co de Phone Number [facility] CLIA# [id number] [address] [place] [id number] * URINE CULTURE (11/15/2024 6:36 AM SIMULATION TECHNICIAN) CULTURE No growth at 24 hours 11/16/2024 7:59 AM [facility] Urine URINE SPECIMEN OBTAINED BY CLEAN CATCH PROCEDURE / Unknown Collection / Unknown 11/15/2024 6:36 AM SIMULATION TECHNICIAN 11/15/2024 6:42 AM SIMULATION TECHNICIAN Ron Meehan DO MICROBIOLOGY - GENE RAL ORDERABLES Performing Organization Address [facility]/ZIP Co de Phone Number [facility]# [id number] [address] [place] [address] * DRUG SCREEN, URINE (11/15/2024 6:36 AM SIMULATION TECHNICIAN) AMPHETAMINE QUAL, URINE Negative Negative 11/15/2024 10:34 AM [facility] [place] [facility] BARBITURATE QUAL, URINE Negative Negative 11/15/2024 10:34 AM [facility] [place] [facility] BENZODIAZEPINE QUAL, URINE Negative Negative 11/15/2024 10:34 AM [facility] [place] [facility] COCAINE QUAL URINE Negative Negative 2023 10:34 AM [facility] [place] [facility] OPIATE QUAL, URINE Negative Negative 2023 10:34 AM [facility] [place] [facility] CANNABINOIDS QUAL, URINE Negative Negative 11/15/2024 10:34 AM [facility] PCP QUAL, URINE Negative Negative 10:34 AM [facility] OXYCODONE QUAL, URINE Negative Negative 11/15/2024 10:34 AM [facility] METHADONE QUAL, URINE Negative Negative 11/15/2024 10:34 AM [facility] FENTANYL QUAL, URINE Negative Negative 11/15/2024 10:34 AM [facility] CREATININE, URINE 167.0 40.0 - 278.0 mg/dL 11/15/2024 10:34 AM [facility] Comment:Reference Range vari es with fluid intake and diet. Urine URINE SPECIMEN OBTAINED BY CLEAN CATCH PROCEDURE / Unknown Collection / Unknown 11/15/2024 6:36 AM [facility] 11/15/2024 6:42 AM [facility] - 11/15/2024 10:34 AM [facility] This test is a qualitative screen. The presumptive positive results should not be used for legal purposes. If confirmation of results is desired, the lab must be contacted without delay. Drug ? Ref. Range ?Screening Threshold Amphetamines ?Negative ?500 ng/mL Barbiturates ?Negative ?200 ng/mL Benzodiazepines ? Negative ?100 ng/mL Cannabinoids ?Negative ? 50 ng/mL Cocaine ?Negative ?150 ng/mL Methadone ? Negative ?300 ng/mL Opiates ? Negative ?300 ng/mL Oxycodone ? Negative ?100 ng/mL Phencyclidine ? Negative ? 25 ng/mL Fentanyl ?Negative ?5 ng/mL Ron Meehan DO URINE ORDERABLES [facility] [place] [facility] CLIA# [id number] [address] [facility] [place] [address] * (ABNORMAL) URINALYSIS WITH REFLEX MICROSCOPIC (11/15/2024 6:36 AM SIMULATION TECHNICIAN) COLOR UA Yellow Pale to Dark Yellow 11/15/2024 7:04 AM [employer] [facility] CLARITY UA Clear Clear 11/15/2024 7:04 AM [facility] [employer] - [facility] SPECIFIC GRAVITY UA 1.021 1.003 - 1.035 11/15/2024 7:04 AM [facility] [employer] [facility] PH UA 5.0 5.0 - 8.0 11/15/2024 7:04 AM [facility] [employer] [facility] LEUKOCYTE ESTERASE UA 1+(A) Negative 11/15/2024 7:04 AM [facility] [employer] [facility] NITRITE UA Negative Negative 11/15/2024 7:04 AM [facility] [employer] [facility] PROTEIN UA Negative Negative 11/15/2024 7:04 AM [facility] [employer] [facility] GLUCOSE UA Negative Negative 11/15/2024 7:04 AM [facility] [employer] [facility] KETONES UA Trace(A) Negative 11/15/2024 7:04 AM [facility] [employer] [facility] UROBILINOGEN UA Normal <2.0 mg/dL 7:04 AM [facility] [employer] [facility] BILIRUBIN UA Negative Negative 11/15/2024 7:04 AM [facility] BLOOD UA Negative Negative 11/15/2024 7:04 AM [facility] WBC UA 26-50(A) 0 - 2 /hpf 11/15/2024 7:[address] [facility] RBC UA 3-5(A) 0 - 2 /hpf 11/15/2024 7:[address] [facility] BACTERIA UA Negative Negative /hpf 11/15/2024 7:04 AM [facility] EPITHELIAL CELLS, URINE 0-5 0 - 5 /hpf 11/15/2024 7:[address] [facility] Urine URINE SPECIMEN OBTAINED BY CLEAN CATCH PROCEDURE / Unknown Collection / Unknown 11/15/2024 6:36 AM SIMULATION TECHNICIAN 11/15/2024 6:42 AM SIMULATION TECHNICIAN Ron Meehan DO URINE ORDERABLES Performing Organization Address [facility]/State/ZIP Co de Phone Number [facility]# [id number] [facility] [place] [phone] documented in this encounter Visit Diagnoses Diagnosis Flank pain- Primary Abdominal pain, unspecified site documented in this encounter Administered Medications Inactive Administered Medications - up to 3 most recent administrations Medication Order MAR Action Action Date Dose Rate Site iopamidoL (ISOVUE-300) 61% injection (drawn from multi-use bulk pack) 100 mL 100 mL, IV, INTRA-PROCEDURE ONCE, 1 dose, Starting on 11/15/24 at 0752, Until 11/15/24 at 0753, Routine Contrast Given 11/15/2024 7:53 AM SIMULATION TECHNICIAN 100 mL ketorolac (TORADOL) injection 10 mg 10 mg, IV, ONE TIME ONLY, 1 dose, On 11/15/24 at 0815, Routine Given 11/15/2024 8:15 AM SIMULATION TECHNICIAN 10 mg sodium chloride 0.9% bolus solution 1,000 mL 1,000 mL, IV, ONE TIME ONLY, 1 dose, On 11/15/24 at 0730, at 2,000 mL/hr, Administer over 30 Minutes, Routine Bolus 11/15/2024 7:30 AM SIMULATION TECHNICIAN 1,000 mL 2000 mL/hr sodium chloride flush injection 10 mL 10 mL, IV, ONE TIME ONLY, 1 dose, On 11/15/24 at 0800, Routine Given 11/15/2024 7:53 AM SIMULATION TECHNICIAN 10 mL documented in this encounter Active and Recently Administered Medications Times are shown in SIMULATION TECHNICIAN. Scheduled Medication Order 11/13/2024 11/14/2024 11/15/2024 iopamidoL (ISOVUE-300) 61% injection (drawn from multi-use bulk pack) 100 mL (COMPLETED) 100 mL, IV, INTRA-PROCEDURE ONCE, 1 dose, Starting on 11/15/24 at 0752, Until 11/15/24 at 0753, Routine 0753 (Contrast Given - Provider: Masood Valiente, ) ketorolac (TORADOL) injection 10 mg (COMPLETED) 10 mg, IV, ONE TIME ONLY, 1 dose, On 11/15/24 at 0815, Routine 0815 (Given - Provid er: Nas Guido RN) sodium chloride 0.9% bolus solution 1,000 mL (COMPLETED) 1,000 mL, IV, ONE TIME ONLY, 1 dose, On 11/15/24 at 0730, at 2,000 mL/hr, Administer over 30 Minutes, Routine 0730 (Bolus - Provid er: Nas Guido RN) sodium chloride flush injection 10 mL (COMPLETED) 10 mL, IV, ONE TIME ONLY, 1 dose, On 11/15/24 at 0800, Routine 0753 (Given - Provid er: RT Amos) documented in this encounter
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
--- OUTSIDE RECORDS SUMMARY | 2024-11-25 02:28 | XMS_ITS | Encounter Summary ---
Author Organization [facility] Address [address] [facility] Attn: Epic Prelude ADT MONTY MCCATRNEY [address] Care Team Providers Care Science Education Professor Name Role Phone Unavailable Primary Care Provider Unavailabl e Encounter Details Date Type Department Care Team (Latest Contact Info) Description 11/13/2024 Travel Social History Tobacco Use Types Packs/Day Years Used Date Smoking Tobacco: Never Feeling Safe Answer Date Recorded Are you in a relationship wi th someone who hurts you emotionally and/or physically? No 11/13/2024 Sex and Gender Information Value Date Recorded Sex Assigned at Not on file Gender Identity Not on file Sexual Orientation Not on file documented as of this encounter Plan of Treatment Not on file documented as of this encounter Visit Diagnoses Not on filedocumented in this encounter
--- OUTSIDE RECORDS SUMMARY | 2024-11-25 02:28 | XMS_ITS | Patient Health Record ---
Author Organization [facility] include [facility] beds at [facility] Address [address] [place] [address] Care Team Providers Care Cook Italian Style Food Name Role Phone Jeanine Smith Primary Care Provider Allergies Allergen (clinical drug ingredient) Drug/Non Drug Allergy documented on EMR Reaction Allergy Type Onset Date Status Penicillin Unknown Drug Allergy Active Reason For Referral No Information Medications Medication SIG (Take, Route, Fr equency, Duration) Notes Start Date End Date Status Mirtazapine 15 MG 1 tablet at bedtime Orally Once a day for 30 day(s) 06/24/2021 Active Albuterol 90 MCG/ACT as directed Inhalation prn Active Social History Tobacco Use: Social History Observation Description Date Details (start date - stop date) Never Smoker NA - NA Dont use, Tobacco Use/Smoking Question Answer Notes Are you a nonsmoker Problems Problem Type SNOMED Code ICD Code Onset Dates Problem Status W/U Status Risk Notes Problem [id number] Grief (F43.21) Active confirmed Plan Of Treatment No Information Insurance Providers Payer Name Payer Address Payer Phone Subscriber Number Group Number Insured Name Patient Relationship to Insured Coverage Start Date Coverage End Date [facility] [address] [place] [address] [id number] Kelvin Beckham Self - patient is the insured
--- OUTSIDE RECORDS SUMMARY | 2024-11-25 02:28 | XMS_ITS | Continuity of Care Document ---
Author Organization Robin [facility]IN[facility] [address] [facility] [address] [place] [address] Assessment No assessment recorded. Plan of Treatment Reminders Order Date Submit Date Provider Last Modified By Organization Details Last Modified Time Details Appointments None recorded. Lab RPR (rapid plasma reagin), serum 2023 024 [facility], [address] [place] [address], [address], [place], [address], 4 06:19:05 HIV 1 + 2, meaningful use set [address] [facility], [address] [place] [address], [address], [place], [address], 4 06:19:07 Hepatitis C IgG Ab, qual, serum [address] [facility], [address] [place] [address], [address], [place], [address], 4 06:19:01 chlamydia trachomatis + neisseria gonorrhoeae rRNA panel, ARACELIS+probe, nasopharynx 2023 024 [facility], [address] [place] [address], [address], [place], [address], 4 06:19:03 HBsAg (hepatitis B surface Ag), EIA, serum 2023 024 [facility], [address] [place] [address], [address], [place], [address], 4 06:19:04 chlamydia trachomatis + neisseria gonorrhoeae + trichomonas vaginalis rRNA panel, ARACELIS+probe 2023 024 [facility], [address], [address], [place], [address], 4 06:19:02 Referral None recorded. Procedures None recorded. Surgeries None recorded. Imaging None recorded. Medication Orders None recorded. Patient TargetsNo targets recorded. Patient Instructions Encounter Date Encounter Id Patient Instructions Last Modified By Organization Details Last Modified Time 09/29/2024 [id number] safer sex: care instructions Not available 09/29/2024 16:35:36 Plan of care has been discussed with patient including expected therapeutic benefits and potential side effects of prescribed medication and treatments. Patient verbalizes understanding and is in agreement with the plan of care. Patient was instructed to keep all scheduled appointments and contact the clinic for any additional problems. [email or web address] Not available 10/14/2024 09:17:26 Reason for Referral None Reported. Problems Name Problem SNOMED Code Status Onset Date Resolution Date Notes Provider Name and Address Organization Details Recorded Time Hypertensive disorder 63744322 Active Tony Edda null, [place] - [place] 6 22:33:58 Headache 23986243 Active Carolina Winter MD Attn: Lauren curry,[address] [facility], [place], [address] [place] [address] - [place] 4 00:19:39 Chronic back pain 039855081 Active Tony Edda null, [place] - [facility] 6 22:33:58 Problem Notes None recorded. Procedures Surgical History Date Name Laterality Status Provider Name and Address Organization Details Recorded Time ureterorenoscopy with fragmentation and removal of calculus of kidney completed Nicki Valle MA [place] 09/29/2024 16:28:17 Imaging Results None recorded. Procedure Notes None recorded. Medical Equipment None Reported. Allergies Allergen ID Allergen Name Allergen Category Reaction Reaction Severity Criticality Documentation Date Start Date Code Code System Note Provider Name and Address Organization Details Recorded Time 613 Medicinal product containin g penicilli n and acting as antibacte rial agent (product) medicatio n Not available Not available Not available 10/06/2014 [id number] [facility]ED [facility] 16:59:40 Medications Name Sig Start Date Stop Date Status Note LastModified by Organization Details LastModified Time cyclobenz aprine 10 mg tablet Take 1 tablet twice a day by oral route for 30 days. 09/29 completed Not Available Not Available Not Available meloxicam 7.5 mg tablet Take 1 tablet( s) every day by oral route for 30 days. 09/29 completed Not Available Not Available Not Available lisinopri l 10 mg tablet 04/19 completed Not Available Not Available Not Available lisinopri l 10 mg-hydroc hlorothia zide 12.5 mg tablet Take 1 tablet every day by oral route for 30 days. 09/29 completed pt phoned edgardo reid. Advised pt to take med as prescribe d and must schedule appt to be seen. Voicing no complaint . Transferr ed to [place] erx'd. Not Available Not Available Not Available methylpre dnisolone 4 mg tablets in a dose pack 09/29 completed Not Available Not Available Not Available Vitals Date Recorded Body height Body mass index (BMI) Body weight Oxygen saturation Oxygen saturation in Arterial blood by Pulse oximetry Heart rate Respiratory rate Body temperature Systolic blood pressure Diastolic blood pressure Provider Name and Address Organization Details Last Updated DateTime 4 177.8 cm 32 kg/m2 470191. 85 g 98 % 98 % 66 /min 16 /min 97.3 [degF] 151 mm[Hg] 104 mm[Hg] Nicki Valle MA [facility] 4 16:30:46 Social History Question Answer Notes LastModified by Organizat ion Details LastModified Time Tobacco Smoking Status Never [facility] 10/06/2014 16:59:40 What Is Your Level Of Alcohol Consumption? Occasional Information not available 09/29/2024 What Is Your Level Of Caffeine Consumption? Moderate Pt. Drinks Ice Tea. Information not available 09/29/2024 What Was The Date Of Your Most Recent Tobacco Screening? 09/29/2024 Information not available 09/29/2024 Do You Use Any Illicit Or Recreational Drugs? No Information not available 09/29/2024 Has Tobacco Cessation Counseling Been Provided? No Information not available 09/29/2024 Do You Or Have You Ever Used Any Other Forms Of Tobacco Or Nicotine? No Information not available 09/29/2024 Sex: Male Functional Status None recorded. Mental Status None recorded. Family History Nothing Reported. Medical History No medical history recorded. Past Encounters Encounter ID Performer Location Encounter Start Date Encounter Closed Date Diagnosis/Indication Diagnosis SNOMED-CT Code Diagnosis ICD10 Code Diagnosis Note [id number] FIDENCIO PEPE [address] [facility] [address] [place] [address] 09/29/2024 15:57:30 10/14/2024 11:38:46 Venereal disease screening 811728767 Z11.3 -Patient agreeable to HIV, syphilis, hepatitis b and c, and STD screening. -CAGE MAKER MACHINE discussed importance of safe sex practices including condom use to prevent STDs and unplanned and to limit number of sexual partners to reduce exposure to STDs.-CAGE MAKER MACHINE provided safer sex care instructio ns. Health Concerns Section Related Observation LastModified by Organization Detai ls LastModified Time None Recorded Concern Status LastModified by Organization Details LastModified Time None Recorded Payers Encounter Date Sequence Insurance Name Policy Number Policy Almbert Covered Member ID Lambert Member ID Guarantor Name 09/29/2024 1 *SELF PAY* La nce Beckham Notes Date Note Type Note Provider Name and Address Organization Details Recorded Time 09/29/2024 text/html Patient presents to the clinic with acute concerns for STDs. Patient is established with Dr. Zeng for primary care. Patient's past medical history includes headache, hypertension, back pain, and kidney stones. STD Screening-Patient denies history of STDs-Patient reports history of male and female partners.-Patient reports history of oral, vaginal, and anal sexual intercourse-Paticoretta t reports he uses condoms consistently.-Destiny ent denies having ay symptoms of penile discharge, urinary symptoms, or pelvic pain. FIDENCIO PEPE Attn: Accounting,[address] [facility], [place], [address], [facility] - [place] 10/14/2024 09:19:07
--- OUTSIDE RECORDS SUMMARY | 2024-11-25 02:28 | XMS_ITS | Patient Health Record ---
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 Name Role Phone Shonda HYLTON, Meredith Primary Care Provider Unavaila Ernestine Lagos Unavailable [phone] Reason For Referral No Information Social History Tobacco Use: Social History Observation Description Date Details (start date - stop date) Never Smoker NA - NA Sex Assigned At : Social History Observation Description Sex Assigned At Male Tobacco Control (Standard) Question Answer Notes Tobacco use: Nonsmoker Problems Problem Type SNOMED Code ICD Code Onset Dates Problem Status W/U Status Risk Notes Problem Severe recurrent major depression without psychotic features (76499463) Major depressive disorder, recurrent severe without psychotic features (F33.2) Active confirmed Problem Generalized anxiety disorder (96862818) Generalized anxiety disorder (F41.1) Active confirmed Problem Insomnia (667044556) Insomnia (G47.00) Active confirmed Problem Adjustment disorder (17871024) Trauma and stressor-relate d disorder (F43.9) Active confirmed Encounters Encounter Location Date Provider Diagnosis [facility] [address] [address] 11/05/2024 Ernestine Cornell Generalized anxiety disorder F41.1 ; Major depressive disorder, recurrent severe without psychotic features F33.2 ; Insomnia G47.00 and Trauma and stressor-related disorder F43.9 [facility] [address] [place] [address] 11/14/2024 Ernestine Cornell Generalized anxiety disorder F41.1 ; Major depressive disorder, recurrent severe without psychotic features F33.2 ; Insomnia G47.00 and Trauma and stressor-related disorder F43.9 Assessments Encounter Date Diagnosis (ICD Code) Assessment Notes Treatment Notes Treatment Clinical Notes Section Notes 11/05/2024 Major depressive disorder, recurrent severe without psychotic features (ICD-10 - F33.2) Preferred name: Celeste Pronouns: he/she/they. 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 Family History of MH/CASANDRA: None known Physical Medical Conditions: asthma, scoliosis, operation to remove kidney stones Spiritual Beliefs: Raised sabianist, grandfather was the vitreo retinal surgeon, has been told by others that the denomination sounded like a cult. Alevism of Abrahamic [place]yan[place]. Differing beliefs. Still believes in a higher power. Suicidal Ideation/Self Harm: History of suicidal thoughts, none currently Homicidal Ideation: Denied Anxiety: I overthink everything. I worry about stuff I don't need to worry about. Racing thoughts, over apologize. Ruminating thoughts. Catastrophizing Depression: PHQ9 score of 14 Anger: Usually takes a lot for me to get to that point. Noted they will bottle up emotions. Psychosis: Denied Sleep: Never good. Trouble falling asleep and staying asleep. Nightmares almost every time they sleep. Can take an hour or more to fall asleep. Sleep paralysis. Never had a sleep study. Noted that they can wake every other hour or every hour of the night. Rarely straight through and only when body is exhausted. Feels that they are never well rested. Appetite: A lot of times I don't even know I'm hungry until I'm eating. Eating once a day. Trauma: of , of grandpa, childhood trauma, witnesses at current job. Nightmares and sleep paralysis. Guilt. Substance Use (type, last use, amount, frequency, withdrawal symptoms): alcohol. 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 Currently drinking socially, No more than 2-3 times a week however typically 1x a week. 2-3 beers and 1-2 shots. Was using cocaine for a year. Last use two years ago. Gambling/Other Addictive Behaviors: None currently. ADLs (Hygiene, Chores, Cooking, Shopping): I don't do a lot of it but what I do seems to get me by. Interests/Skills/H obbies: DnD, music Goal(s) for Therapy: I just want to feel like I'm normal. I've never felt normal. I know that's a hard word to categorize. Eliminate worries and negative thoughts to be okay. Assessment and Plan: 1. Anxiety and Racing Thoughts - Continue weekly therapy sessions to address anxiety and negative thought patterns. - Teach and practice relaxation techniques, including deep breathing exercises and progressive muscle relaxation. - Encourage the patient to engage in self-care activities and prioritize their own well-being. 2. Trauma History - Utilize trauma-informed therapy approaches to help the patient process and cope with past traumatic experiences. - Gradually explore the patient's trauma history at a pace they are comfortable with. - Encourage the patient to establish a support network, including attending local support groups such as [employer] and [employer] 3. Sleep Disturbances and Nightmares - Assess the patient's sleep hygiene and provide recommendations for improvement. - Consider referral for a sleep study if sleep disturbances persist or worsen. - Explore the possibility of using imagery rehearsal therapy to address nightmares. 4. Gender Identity and Self-Expression - Support the patient in their exploration and expression of their gender identity. - Encourage the patient to connect with local resources and support groups for gender-diverse individuals. - Address any internalized stigma or guilt related to their gender identity and upbringing. 5. Grief and Loss - Utilize grief counseling techniques to help the patient process the loss of their and grandfather. - Encourage the patient to engage in activities that honor the memory of their loved ones. - Support the patient in finding new sources of purpose and meaning in their life. 6. Substance Use History - Monitor the patient's current alcohol consumption and encourage moderation. - Discuss potential triggers for increased alcohol use and develop coping strategies to prevent relapse. - Address any past substance use concerns and provide resources for additional support if needed. 7. Social Support and Relationships - Encourage the patient to strengthen existing support networks and develop new connections. - Provide resources for local support groups and community events. - Assist the patient in improving communication and relationship-build ing skills. Follow-up: - Schedule weekly therapy sessions to monitor progress and address any new concerns. - Reassess the patient's needs and adjust the treatment plan as necessary. - Encourage the patient to reach out between sessions if they need additional support or have any questions. 11/05/2024 Generalized anxiety disorder (ICD-10 - F41.1) Preferred name: Celeste Pronouns: he/she/they. 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 Family History of MH/CASANDRA: None known Physical Medical Conditions: asthma, scoliosis, operation to remove kidney stones Spiritual Beliefs: Raised sabianist, grandfather was the vitreo retinal surgeon, has been told by others that the denomination sounded like a cult. Alevism of [employer] [place]yan[place]. Differing beliefs. Still believes in a higher power. Suicidal Ideation/Self Harm: History of suicidal thoughts, none currently Homicidal Ideation: Denied Anxiety: I overthink everything. I worry about stuff I don't need to worry about. Racing thoughts, over apologize. Ruminating thoughts. Catastrophizing Depression: PHQ9 score of 14 Anger: Usually takes a lot for me to get to that point. Noted they will bottle up emotions. Psychosis: Denied Sleep: Never good. Trouble falling asleep and staying asleep. Nightmares almost every time they sleep. Can take an hour or more to fall asleep. Sleep paralysis. Never had a sleep study. Noted that they can wake every other hour or every hour of the night. Rarely straight through and only when body is exhausted. Feels that they are never well rested. Appetite: A lot of times I don't even know I'm hungry until I'm eating. Eating once a day. Trauma: of , of grandpa, childhood trauma, witnesses at current job. Nightmares and sleep paralysis. Guilt. Substance Use (type, last use, amount, frequency, withdrawal symptoms): alcohol. 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 Currently drinking socially, No more than 2-3 times a week however typically 1x a week. 2-3 beers and 1-2 shots. Was using cocaine for a year. Last use two years ago. Gambling/Other Addictive Behaviors: None currently. ADLs (Hygiene, Chores, Cooking, Shopping): I don't do a lot of it but what I do seems to get me by. Interests/Skills/H obbies: DnD, music Goal(s) for Therapy: I just want to feel like I'm normal. I've never felt normal. I know that's a hard word to categorize. Eliminate worries and negative thoughts to be okay. Assessment and Plan: 1. Anxiety and Racing Thoughts - Continue weekly therapy sessions to address anxiety and negative thought patterns. - Teach and practice relaxation techniques, including deep breathing exercises and progressive muscle relaxation. - Encourage the patient to engage in self-care activities and prioritize their own well-being. 2. Trauma History - Utilize trauma-informed therapy approaches to help the patient process and cope with past traumatic experiences. - Gradually explore the patient's trauma history at a pace they are comfortable with. - Encourage the patient to establish a support network, including attending local support groups such as [employer] and [employer] 3. Sleep Disturbances and Nightmares - Assess the patient's sleep hygiene and provide recommendations for improvement. - Consider referral for a sleep study if sleep disturbances persist or worsen. - Explore the possibility of using imagery rehearsal therapy to address nightmares. 4. Gender Identity and Self-Expression - Support the patient in their exploration and expression of their gender identity. - Encourage the patient to connect with local resources and support groups for gender-diverse individuals. - Address any internalized stigma or guilt related to their gender identity and upbringing. 5. Grief and Loss - Utilize grief counseling techniques to help the patient process the loss of their and grandfather. - Encourage the patient to engage in activities that honor the memory of their loved ones. - Support the patient in finding new sources of purpose and meaning in their life. 6. Substance Use History - Monitor the patient's current alcohol consumption and encourage moderation. - Discuss potential triggers for increased alcohol use and develop coping strategies to prevent relapse. - Address any past substance use concerns and provide resources for additional support if needed. 7. Social Support and Relationships - Encourage the patient to strengthen existing support networks and develop new connections. - Provide resources for local support groups and community events. - Assist the patient in improving communication and relationship-build ing skills. Follow-up: - Schedule weekly therapy sessions to monitor progress and address any new concerns. - Reassess the patient's needs and adjust the treatment plan as necessary. - Encourage the patient to reach out between sessions if they need additional support or have any questions. 11/14/2024 Major depressive disorder, recurrent severe without psychotic features (ICD-10 - F33.2) 1. Grief and Guilt Related to 's Passing - Encourage the patient to continue processing grief and guilt through therapy sessions. - Explore the possibility of joining a grief support group. - Recommend journaling or other creative outlets to express emotions. 2. History of Trauma and Triggers - Continue to identify and address triggers in therapy sessions. - Develop healthy coping strategies and boundaries for managing triggers. - Encourage open communication with the patient's girlfriend about triggers and boundaries. 3. Sleep Paralysis and Sleep Disturbances - Monitor the frequency and severity of sleep paralysis episodes. - Discuss potential sleep hygiene improvements and relaxation techniques before bedtime. - Consider referral to a sleep specialist if symptoms persist or worsen. 4. Self-Esteem and Self-Image Issues - Encourage the patient to engage in self-care activities, such as grooming and personal appearance. - Work on building self-esteem through positive affirmations and recognizing personal strengths. - Utilize the Laguo abhijit for self-care and self-reflection. 5. Desire for Parenthood and Concerns About Personal Readiness - Continue discussing the patient's goals and concerns related to parenthood in therapy sessions. - Explore potential avenues for personal growth and self-improvement to prepare for parenthood. 6. Social Anxiety and Difficulty Connecting with Others - Encourage the patient to attend monthly social events and engage in activities that promote social interaction. - Develop strategies for managing social anxiety and building connections with others. 7. Financial Concerns Related to Therapy - Schedule therapy sessions every other week to accommodate the patient's financial constraints. - Provide information on community resources and support groups as additional sources of support. 8. Spiritual Beliefs and Feelings of Abandonment - Encourage the patient to explore their spiritual beliefs and consider seeking spiritual guidance or support if desired. Follow-up: - Schedule therapy sessions every other week to monitor the patient's progress and adjust the treatment plan as needed. 11/14/2024 Generalized anxiety disorder (ICD-10 - F41.1) 1. Grief and Guilt Related to 's Passing - Encourage the patient to continue processing grief and guilt through therapy sessions. - Explore the possibility of joining a grief support group. - Recommend journaling or other creative outlets to express emotions. 2. History of Trauma and Triggers - Continue to identify and address triggers in therapy sessions. - Develop healthy coping strategies and boundaries for managing triggers. - Encourage open communication with the patient's girlfriend about triggers and boundaries. 3. Sleep Paralysis and Sleep Disturbances - Monitor the frequency and severity of sleep paralysis episodes. - Discuss potential sleep hygiene improvements and relaxation techniques before bedtime. - Consider referral to a sleep specialist if symptoms persist or worsen. 4. Self-Esteem and Self-Image Issues - Encourage the patient to engage in self-care activities, such as grooming and personal appearance. - Work on building self-esteem through positive affirmations and recognizing personal strengths. - Utilize the Laguo abhijit for self-care and self-reflection. 5. Desire for Parenthood and Concerns About Personal Readiness - Continue discussing the patient's goals and concerns related to parenthood in therapy sessions. - Explore potential avenues for personal growth and self-improvement to prepare for parenthood. 6. Social Anxiety and Difficulty Connecting with Others - Encourage the patient to attend monthly social events and engage in activities that promote social interaction. - Develop strategies for managing social anxiety and building connections with others. 7. Financial Concerns Related to Therapy - Schedule therapy sessions every other week to accommodate the patient's financial constraints. - Provide information on community resources and support groups as additional sources of support. 8. Spiritual Beliefs and Feelings of Abandonment - Encourage the patient to explore their spiritual beliefs and consider seeking spiritual guidance or support if desired. Follow-up: - Schedule therapy sessions every other week to monitor the patient's progress and adjust the treatment plan as needed. 11/14/2024 Insomnia (ICD-10 - G47.00) 1. Grief and Guilt Related to 's Passing - Encourage the patient to continue processing grief and guilt through therapy sessions. - Explore the possibility of joining a grief support group. - Recommend journaling or other creative outlets to express emotions. 2. History of Trauma and Triggers - Continue to identify and address triggers in therapy sessions. - Develop healthy coping strategies and boundaries for managing triggers. - Encourage open communication with the patient's girlfriend about triggers and boundaries. 3. Sleep Paralysis and Sleep Disturbances - Monitor the frequency and severity of sleep paralysis episodes. - Discuss potential sleep hygiene improvements and relaxation techniques before bedtime. - Consider referral to a sleep specialist if symptoms persist or worsen. 4. Self-Esteem and Self-Image Issues - Encourage the patient to engage in self-care activities, such as grooming and personal appearance. - Work on building self-esteem through positive affirmations and recognizing personal strengths. - Utilize the Laguo abhijit for self-care and self-reflection. 5. Desire for Parenthood and Concerns About Personal Readiness - Continue discussing the patient's goals and concerns related to parenthood in therapy sessions. - Explore potential avenues for personal growth and self-improvement to prepare for parenthood. 6. Social Anxiety and Difficulty Connecting with Others - Encourage the patient to attend monthly social events and engage in activities that promote social interaction. - Develop strategies for managing social anxiety and building connections with others. 7. Financial Concerns Related to Therapy - Schedule therapy sessions every other week to accommodate the patient's financial constraints. - Provide information on community resources and support groups as additional sources of support. 8. Spiritual Beliefs and Feelings of Abandonment - Encourage the patient to explore their spiritual beliefs and consider seeking spiritual guidance or support if desired. Follow-up: - Schedule therapy sessions every other week to monitor the patient's progress and adjust the treatment plan as needed. 11/05/2024 Insomnia (ICD-10 - G47.00) Preferred name: Celeste Pronouns: he/she/they. 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 Family History of MH/CASANDRA: None known Physical Medical Conditions: asthma, scoliosis, operation to remove kidney stones Spiritual Beliefs: Raised sabianist, grandfather was the vitreo retinal surgeon, has been told by others that the denomination sounded like a cult. Alevism of Abraham[employer] [place]. Differing beliefs. Still believes in a higher power. Suicidal Ideation/Self Harm: History of suicidal thoughts, none currently Homicidal Ideation: Denied Anxiety: I overthink everything. I worry about stuff I don't need to worry about. Racing thoughts, over apologize. Ruminating thoughts. Catastrophizing Depression: PHQ9 score of 14 Anger: Usually takes a lot for me to get to that point. Noted they will bottle up emotions. Psychosis: Denied Sleep: Never good. Trouble falling asleep and staying asleep. Nightmares almost every time they sleep. Can take an hour or more to fall asleep. Sleep paralysis. Never had a sleep study. Noted that they can wake every other hour or every hour of the night. Rarely straight through and only when body is exhausted. Feels that they are never well rested. Appetite: A lot of times I don't even know I'm hungry until I'm eating. Eating once a day. Trauma: of , of grandpa, childhood trauma, witnesses at current job. Nightmares and sleep paralysis. Guilt. Substance Use (type, last use, amount, frequency, withdrawal symptoms): alcohol. 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 Currently drinking socially, No more than 2-3 times a week however typically 1x a week. 2-3 beers and 1-2 shots. Was using cocaine for a year. Last use two years ago. Gambling/Other Addictive Behaviors: None currently. ADLs (Hygiene, Chores, Cooking, Shopping): I don't do a lot of it but what I do seems to get me by. Interests/Skills/H obbies: DnD, music Goal(s) for Therapy: I just want to feel like I'm normal. I've never felt normal. I know that's a hard word to categorize. Eliminate worries and negative thoughts to be okay. Assessment and Plan: 1. Anxiety and Racing Thoughts - Continue weekly therapy sessions to address anxiety and negative thought patterns. - Teach and practice relaxation techniques, including deep breathing exercises and progressive muscle relaxation. - Encourage the patient to engage in self-care activities and prioritize their own well-being. 2. Trauma History - Utilize trauma-informed therapy approaches to help the patient process and cope with past traumatic experiences. - Gradually explore the patient's trauma history at a pace they are comfortable with. - Encourage the patient to establish a support network, including attending local support groups such as [employer] and [employer] 3. Sleep Disturbances and Nightmares - Assess the patient's sleep hygiene and provide recommendations for improvement. - Consider referral for a sleep study if sleep disturbances persist or worsen. - Explore the possibility of using imagery rehearsal therapy to address nightmares. 4. Gender Identity and Self-Expression - Support the patient in their exploration and expression of their gender identity. - Encourage the patient to connect with local resources and support groups for gender-diverse individuals. - Address any internalized stigma or guilt related to their gender identity and upbringing. 5. Grief and Loss - Utilize grief counseling techniques to help the patient process the loss of their and grandfather. - Encourage the patient to engage in activities that honor the memory of their loved ones. - Support the patient in finding new sources of purpose and meaning in their life. 6. Substance Use History - Monitor the patient's current alcohol consumption and encourage moderation. - Discuss potential triggers for increased alcohol use and develop coping strategies to prevent relapse. - Address any past substance use concerns and provide resources for additional support if needed. 7. Social Support and Relationships - Encourage the patient to strengthen existing support networks and develop new connections. - Provide resources for local support groups and community events. - Assist the patient in improving communication and relationship-build ing skills. Follow-up: - Schedule weekly therapy sessions to monitor progress and address any new concerns. - Reassess the patient's needs and adjust the treatment plan as necessary. - Encourage the patient to reach out between sessions if they need additional support or have any questions. 11/05/2024 Trauma and stressor-relate d disorder (ICD-10 - F43.9) Preferred name: Celeste Pronouns: he/she/they. 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 Family History of MH/CASANDRA: None known Physical Medical Conditions: asthma, scoliosis, operation to remove kidney stones Spiritual Beliefs: Raised sabianist, grandfather was the vitreo retinal surgeon, has been told by others that the denomination sounded like a cult. Alevism of Abrahamic Shyanne. Differing beliefs. Still believes in a higher power. Suicidal Ideation/Self Harm: History of suicidal thoughts, none currently Homicidal Ideation: Denied Anxiety: I overthink everything. I worry about stuff I don't need to worry about. Racing thoughts, over apologize. Ruminating thoughts. Catastrophizing Depression: PHQ9 score of 14 Anger: Usually takes a lot for me to get to that point. Noted they will bottle up emotions. Psychosis: Denied Sleep: Never good. Trouble falling asleep and staying asleep. Nightmares almost every time they sleep. Can take an hour or more to fall asleep. Sleep paralysis. Never had a sleep study. Noted that they can wake every other hour or every hour of the night. Rarely straight through and only when body is exhausted. Feels that they are never well rested. Appetite: A lot of times I don't even know I'm hungry until I'm eating. Eating once a day. Trauma: of , of grandpa, childhood trauma, witnesses at current job. Nightmares and sleep paralysis. Guilt. Substance Use (type, last use, amount, frequency, withdrawal symptoms): alcohol. 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 Currently drinking socially, No more than 2-3 times a week however typically 1x a week. 2-3 beers and 1-2 shots. Was using cocaine for a year. Last use two years ago. Gambling/Other Addictive Behaviors: None currently. ADLs (Hygiene, Chores, Cooking, Shopping): I don't do a lot of it but what I do seems to get me by. Interests/Skills/H obbies: DnD, music Goal(s) for Therapy: I just want to feel like I'm normal. I've never felt normal. I know that's a hard word to categorize. Eliminate worries and negative thoughts to be okay. Assessment and Plan: 1. Anxiety and Racing Thoughts - Continue weekly therapy sessions to address anxiety and negative thought patterns. - Teach and practice relaxation techniques, including deep breathing exercises and progressive muscle relaxation. - Encourage the patient to engage in self-care activities and prioritize their own well-being. 2. Trauma History - Utilize trauma-informed therapy approaches to help the patient process and cope with past traumatic experiences. - Gradually explore the patient's trauma history at a pace they are comfortable with. - Encourage the patient to establish a support network, including attending local support groups such as [employer] and [employer] 3. Sleep Disturbances and Nightmares - Assess the patient's sleep hygiene and provide recommendations for improvement. - Consider referral for a sleep study if sleep disturbances persist or worsen. - Explore the possibility of using imagery rehearsal therapy to address nightmares. 4. Gender Identity and Self-Expression - Support the patient in their exploration and expression of their gender identity. - Encourage the patient to connect with local resources and support groups for gender-diverse individuals. - Address any internalized stigma or guilt related to their gender identity and upbringing. 5. Grief and Loss - Utilize grief counseling techniques to help the patient process the loss of their and grandfather. - Encourage the patient to engage in activities that honor the memory of their loved ones. - Support the patient in finding new sources of purpose and meaning in their life. 6. Substance Use History - Monitor the patient's current alcohol consumption and encourage moderation. - Discuss potential triggers for increased alcohol use and develop coping strategies to prevent relapse. - Address any past substance use concerns and provide resources for additional support if needed. 7. Social Support and Relationships - Encourage the patient to strengthen existing support networks and develop new connections. - Provide resources for local support groups and community events. - Assist the patient in improving communication and relationship-build ing skills. Follow-up: - Schedule weekly therapy sessions to monitor progress and address any new concerns. - Reassess the patient's needs and adjust the treatment plan as necessary. - Encourage the patient to reach out between sessions if they need additional support or have any questions. 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 Grief and Guilt Related to 's Passing - Encourage the patient to continue processing grief and guilt through therapy sessions. - Explore the possibility of joining a grief support group. - Recommend journaling or other creative outlets to express emotions. 2. History of Trauma and Triggers - Continue to identify and address triggers in therapy sessions. - Develop healthy coping strategies and boundaries for managing triggers. - Encourage open communication with the patient's girlfriend about triggers and boundaries. 3. Sleep Paralysis and Sleep Disturbances - Monitor the frequency and severity of sleep paralysis episodes. - Discuss potential sleep hygiene improvements and relaxation techniques before bedtime. - Consider referral to a sleep specialist if symptoms persist or worsen. 4. Self-Esteem and Self-Image Issues - Encourage the patient to engage in self-care activities, such as grooming and personal appearance. - Work on building self-esteem through positive affirmations and recognizing personal strengths. - Utilize the Laguo abhijit for self-care and self-reflection. 5. Desire for Parenthood and Concerns About Personal Readiness - Continue discussing the patient's goals and concerns related to parenthood in therapy sessions. - Explore potential avenues for personal growth and self-improvement to prepare for parenthood. 6. Social Anxiety and Difficulty Connecting with Others - Encourage the patient to attend monthly social events and engage in activities that promote social interaction. - Develop strategies for managing social anxiety and building connections with others. 7. Financial Concerns Related to Therapy - Schedule therapy sessions every other week to accommodate the patient's financial constraints. - Provide information on community resources and support groups as additional sources of support. 8. Spiritual Beliefs and Feelings of Abandonment - Encourage the patient to explore their spiritual beliefs and consider seeking spiritual guidance or support if desired. Follow-up: - Schedule therapy sessions every other week to monitor the patient's progress and adjust the treatment plan as needed. Plan Of Treatment Next Appt Details Provider Name:Ernestine Dylon sanders, 11/28/2024 08:00:00 AM, [address], [facility] [address], [address], Insurance Providers Payer Name Payer Address Payer Phone Subscriber Number Group Number Insured Name Patient Relationship to Insured Coverage Start Date Coverage End Date [facility] [address] [place] [address] [id number] MARILOU MIRANDA Self - patient is the insured
--- OUTSIDE RECORDS SUMMARY | 2024-11-25 02:28 | XMS_ITS | Clinical Summary ---
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 14 Tablet 11/15/2024 11/22/2024 tamsulosin (FLOMAX) 0.4 mg capsule Take 1 Capsule (0.4 mg) by mouth daily for 7 days. 7 Capsule 11/15/2024 11/22/2024 Encounters Date Type Department Care Team Description 11/18/2024 External Device Data STL ABSTRACTION Provider, Abstract 11/15/2024 7:12 AM [facility] - 11/15/2024 9:27 AM [facility] Emergency [facility] Emergency Department [address] [place] [phone] Ron Meehan DO Flank pain (Primary Dx) Discharge Disposition: Home or Self Care 11/13/2024 2:43 AM [facility] - 11/13/2024 3:58 AM [facility] Emergency Department [address] [place] [phone] Jacob Holliday DO Closed head injury, initial encounter (Primary Dx) Discharge Disposition: Home or Self Care 11/13/2024 Travel from Last 3 Months Immunizations Name Administration Dates Next Due Influenza Seasonal Unspecified Formulation IM Social History Tobacco Use Types Packs/Day Years Used Date Smoking Tobacco: Never Tobacco Cessation:Counseling Given: Not Answered Alcohol Use Standard Drinks/Week Comments Not Currently 0 (1 standard drink = 0.6 oz pur e alcohol) Feeling Safe Answer Date Recorded Are you in a relationship wi th someone who hurts you emotionally and/or physically? No 11/13/2024 Sex and Gender Information Value Date Recorded Sex Assigned at Not on file Gender Identity Not on file Sexual Orientation Not on file Last Filed Vital Signs Vital Sign Reading Time Taken Comments Blood Pressure 121/88 11/15/2024 8:30 AM [facility] Pulse 57 11/15/2024 8:30 AM [facility] Temperature 36.6 ??C (97.8 ??F) 11/15/2024 9:08 AM CS T Respiratory Rate 16 11/15/2024 8:30 AM [facility] Oxygen Saturation 96% 11/15/2024 8:30 AM [facility] Inhaled Oxygen Concentration - - Weight 102.1 kg (225 lb) 11/15/2024 6:16 AM [facility] Height 175.3 cm (5' 9 ) 11/15/2024 6:16 AM [facility] Body Mass Index 33.23 11/15/2024 6:16 AM [facility] Plan of Treatment Health Maintenance Due Date Last Done Comments Pre-Diabetes and Diabetes Screening 1986 HEPATITIS B VACCINES (1 of - 19+ 3-dose series) 2005 COVID-19 Vaccine (2023-2 5 season) 2024 01/24/2022, 12/19/2021 Preventative Visit- Commercial 11/19/2024 DTAP/TDAP/TD VACCINES (2 - T d or Tdap) 11/26/2033 11/26/2023 INFLUENZA VACCINE Completed 09/23/2024 HPV VACCINES Aged Out No longer eligi ble based on patient's age to complete this topic PNEUMOCOCCAL VACCINE 0-64 YEARS Aged Out No longer eligible b ased on patient's age to complete this topic Procedures Procedure Name Priority Date/Time Associated Diagnosis Comments CT ABDOMEN PELVIS W CONTRAST Stat 11/15/2024 7:52 AM [facility] POC CREATININE Stat 11/15/2024 7:34 AM [facility] [facility] COMPREHENSIVE METABOLIC PANEL Stat 11/15/2024 7:29 AM [facility] CBC WITH DIFFERENTIAL Stat 11/15/2024 7:29 AM [facility] DRUG SCREEN, URINE Stat 11/15/2024 6: 36 AM [facility] URINALYSIS W/REFLEX MICROSCOPIC Stat 11/15/2024 6:36 AM [facility] URINE CULTURE Stat 11/15/2024 6:36 AM [facility] CT HEAD MAXILLOFACIAL WO CONTRAST Stat 11/13/2024 3:29 AM [facility] [facility] from Last 3 Months Results * CT ABDOMEN PELVIS W CONTRAST (11/15/2024 7:52 AM [employer] [facility]) Anatomical Region Laterality Modality Abdomen Computed Tomogra phy 11/15/2024 7:53 AM [facility] Impressions 11/15/2024 8:11 AM [facility] IMPRESSION: ?? Multiple bilateral nonobstructing renal calculi [...] Reconstruction Technique. ?? DICTATION LOCATION: Location 1 [facility] 11/15/2024 8:11 AM [employer] COMPUTED TOMOGRAPHY OF THE ABDOMEN AND PELVIS [...] Reconstruction Technique. DICTATION LOCATION: [facility] * POC CREATININE (11/15/2024 7:34 AM [employer] [facility]) CREATININE POC 1.10 0.70 - 1.20 mg/dL 11/15/2024 7:34 AM [employer] [facility] GFR POC >60 >=60 mL/min/1.7 3 sq meter 11/15/2024 7:34 AM [facility] [facility] [employer] [facility] Comment:eGFR calculated with 2020 CKD-EPI equation. Vegetarian diet, extremely high or low muscle mass, and may affect results. Cystatin C with Glomerular Filtration Rate is a suitable alternative for these patients. Blood, whole 11/15/2024 7:34 AM [employer] [facility] [facility] 11/15/2024 7:40 AM [employer] Ron Meehan DO POINT OF CARE TESTI [facility]# [id number] [address] [facility] [place] [address] * (ABNORMAL) CBC WITH DIFFERENTIAL (11/15/2024 7:29 AM [employer]) WBC 12.5(H) 4.0 - 9.8 K/uL 11/15/2024 7:45 AM [employer] RBC 4.72 4.50 - 5.40 M/uL 11/15/2024 7:45 AM [facility] [facility] HEMOGLOBIN 14.9 13.6 - 16.5 g/dL 11/15/2024 7:45 AM [facility] [facility] HEMATOCRIT 43.4 40.0 - 48.0 % 11/15/2024 7:45 AM [employer] [facility] MCV 91.9 82.0 - 99.0 fL 11/15/2024 7:45 AM [facility] [facility] MCH 31.6 27.2 - 32.6 pg 11/15/2024 7:45 AM [facility] [facility] MCHC 34.3 31.5 - 35.5 g/dL 11/15/2024 7:45 AM [facility] [facility] RDW 13.0 11.5 - 14.5 % 11/15/2024 7:45 AM [facility] [facility] [facility] RDW-STDEV 44.1 37.1 - 48.7 fL 11/15/2024 7:45 AM [facility] PLATELETS 314 140 - 350 K/uL 11/15/2024 7:45 AM [facility] [facility] MPV 9.8 9.3 - 12.4 fL 11/15/2024 7:45 AM [facility] [employer] NEUTROPHILS 64 % 11/15/2024 7:45 AM [facility] LYMPHOCYTES 24 % 11/15/2024 7:45 AM [facility] MONOCYTES 8 % 11/15/2024 7:45 AM [facility] EOSINOPHILS 4 % 11/15/2024 7:45 AM [facility] [facility] [facility] BASOPHILS 1 % 11/15/2024 7:45 AM [facility] IMMATURE GRANULOCYTES 0 % 11/15/2024 7:45 AM [facility] [facility] [facility] NEUTROPHIL ABSOLUTE 7.94(H) 1.90 - 7.00 K/uL 11/15/2024 7:45 AM [facility] [facility] [facility] LYMPHOCYTE ABSOLUTE 2.95 0.70 - 4.50 K/uL 11/15/2024 7:45 AM [facility] [facility] MONOCYTE ABSOLUTE 0.98 0.10 - 1.30 K/uL 11/15/2024 7:45 AM [facility] [facility] [facility] EOSINOPHIL ABSOLUTE 0.49 0.00 - 0.70 K/uL 11/15/2024 7:45 AM [facility] [facility] BASOPHILS ABSOLUTE 0.06 0.00 - 0.20 K/uL 11/15/2024 7:45 AM [facility] IMMATURE GRANULOCYTES ABSOLUTE 0.05(H) 0.00 - 0.03 K/uL 11/15/2024 7:45 AM [facility] Blood Venipuncture / Unknown 11/15/2024 7:29 AM [facility] 11/15/2024 7:33 AM [facility] [facility] Ron Meehan DO HEMATOLOGY ORDERABL ES [facility]# [id number] [address] [facility] [place] [address] * (ABNORMAL) COMPREHENSIVE METABOLIC PANEL (11/15/2024 7:29 AM [employer] [facility]) SODIUM 137 136 - 145 mmol/L 11/15/2024 8:21 AM [facility] POTASSIUM 3.7 3.5 - 5.0 mmol/L 11/15/2024 8:21 AM [facility] CHLORIDE 101 98 - 107 mmol/L 11/15/2024 8:21 AM [facility] CO2 27 22 - 29 mmol/L 11/15/2024 8:21 AM [facility] CALCIUM 9.7 8.6 - 10.2 mg/dL 11/15/2024 8:21 AM [facility] [facility] [facility] BUN 17 6 - 20 mg/dL 11/15/2024 8:21 AM [facility] CREATININE 0.98 0.67 - 1.17 mg/dL 11/15/2024 8:21 AM [facility] GLUCOSE 94 74 - 99 mg/dL 11/15/2024 8:21 AM [facility] TOTAL PROTEIN 7.8 6.7 - 8.6 g/dL 11/15/2024 8:21 AM [facility] ALBUMIN 4.4 3.5 - 5.2 g/dL 11/15/2024 8:21 AM [facility] BILIRUBIN TOTAL 0.6 0.3 - 1.2 mg/dL 11/15/2024 8:21 AM [facility] ALKALINE PHOSPHATASE 112 40 - 129 U/L 11/15/2024 8:21 AM [facility] AST 50(H) <41 U/L 11/15/2024 8:21 AM [facility] ALT 51(H) <42 U/L 11/15/2024 8:21 AM [facility] GFR >60 >=60 mL/min/1.7 3 sq meter 11/15/2024 8:21 AM [facility] Comment:eGFR calculated with 2020 CKD-EPI equation. Vegetarian diet, extremely high or low muscle mass, and may affect results. Cystatin C with Glomerular Filtration Rate is a suitable alternative for these patients. ANION GAP 9 8 - 16 mmol/L 11/15/2024 8:21 AM [facility] Blood Venipuncture / Unknown 11/15/2024 7:29 AM [facility] [facility] 11/15/2024 7:33 AM [facility] - 11/15/2024 8:21 AM [facility] Samples containing indocyanine green cause interferences on Total and/or Direct Bilirubin and must not be measured. Ron Meehan DO CHEMISTRY ORDERABLE S [facility] [id number] [address] [place] [address] * DRUG SCREEN, URINE (11/15/2024 6:36 AM [employer] [facility]) AMPHETAMINE QUAL, URINE Negative Negative 11/15/2024 10:34 AM [facility] BARBITURATE QUAL, URINE Negative Negative 11/15/2024 10:34 AM [facility] [employer] [facility] BENZODIAZEPINE QUAL, URINE Negative Negative 11/15/2024 10:34 AM [facility] [employer] [facility] COCAINE QUAL URINE Negative Negative 2023 10:34 AM [facility] [employer] [facility] OPIATE QUAL, URINE Negative Negative 2023 10:34 AM [facility] CANNABINOIDS QUAL, URINE Negative Negative 11/15/2024 10:34 AM [facility] PCP QUAL, URINE Negative Negative 10:34 AM [facility] [employer] [facility] OXYCODONE QUAL, URINE Negative Negative 11/15/2024 10:34 AM [facility] [employer] [facility] METHADONE QUAL, URINE Negative Negative 11/15/2024 10:34 AM [facility] [employer] [facility] FENTANYL QUAL, URINE Negative Negative 11/15/2024 10:34 AM [facility] [employer] [facility] CREATININE, URINE 167.0 40.0 - 278.0 mg/dL 11/15/2024 10:34 AM [facility] [employer] [facility] Comment:Reference Range vari es with fluid intake and diet. Urine URINE SPECIMEN OBTAINED BY CLEAN CATCH PROCEDURE / Unknown Collection / Unknown 11/15/2024 6:36 AM [facility] 11/15/2024 6:42 AM [facility] - 11/15/2024 10:34 AM [facility] This test is a qualitative screen. [...] ?5 ng/mL Ron Meehan DO URINE ORDERABLES [facility] [employer] [facility]# [id number] [address] [facility] [address] * (ABNORMAL) URINALYSIS WITH REFLEX MICROSCOPIC (11/15/2024 6:36 AM [employer] [facility]) COLOR UA Yellow Pale to Dark Yellow 11/15/2024 7:04 AM [facility] [employer] [facility] CLARITY UA Clear Clear 11/15/2024 7:04 AM [facility] [employer] [facility] SPECIFIC GRAVITY UA 1.021 1.003 - 1.035 11/15/2024 7:04 AM [facility] [employer] [facility] PH UA 5.0 5.0 - 8.0 11/15/2024 7:04 AM [facility] LEUKOCYTE ESTERASE UA 1+(A) Negative 11/15/2024 7:04 AM [facility] [employer] [facility] NITRITE UA Negative Negative 11/15/2024 7:04 AM [facility] [employer] [facility] PROTEIN UA Negative Negative 11/15/2024 7:04 AM [facility] [employer] [facility] GLUCOSE UA Negative Negative 11/15/2024 7:04 AM [facility] [employer] [facility] KETONES UA Trace(A) Negative 11/15/2024 7:04 AM [facility] UROBILINOGEN UA Normal <2.0 mg/dL 7:04 AM [facility] [employer] [facility] BILIRUBIN UA Negative Negative 11/15/2024 7:04 AM [facility] BLOOD UA Negative Negative 11/15/2024 7:04 AM [facility] [employer] [facility] WBC UA 26-50(A) 0 - 2 /hpf 11/15/2024 7:04 AM [facility] RBC UA 3-5(A) 0 - 2 /hpf 11/15/2024 7:04 AM [facility] [employer] [facility] BACTERIA UA Negative Negative /hpf 11/15/2024 7:04 AM [facility] [employer] [facility] EPITHELIAL CELLS, URINE 0-5 0 - 5 /hpf 11/15/2024 7:04 AM [facility] [employer] [facility] Urine URINE SPECIMEN OBTAINED BY CLEAN CATCH PROCEDURE / Unknown Collection / Unknown 11/15/2024 6:36 AM [employer] [facility] [facility] 11/15/2024 6:42 AM [employer] Ron Meehan DO URINE ORDERABLES [facility]# [id number] [address] [place] [address] [place] [address] * URINE CULTURE (11/15/2024 6:36 AM [employer]) CULTURE No growth at 24 hours 11/16/2024 7:59 AM [facility] [employer] [facility] Urine URINE SPECIMEN OBTAINED BY CLEAN CATCH PROCEDURE / Unknown Collection / Unknown 11/15/2024 6:36 AM [employer] [facility] 11/15/2024 6:42 AM [employer] Ron Meehan DO MICROBIOLOGY - GENE RAL ORDERABLES [facility]# [id number] [place] [address] * CT HEAD MAXILLOFACIAL WO CONTRAST (11/13/2024 3:29 AM [employer]) Anatomical Region Laterality Modality Head Computed Tomogra phy 11/13/2024 3:35 AM [employer] [facility] Impressions 11/13/2024 3:48 AM [employer] [facility] Impression: 1. ??No acute intracranial process. 2. ??No acute facial bone fracture. DICTATION LOCATION: Location 4 Narrative 11/13/2024 3:48 AM [facility] [address] HEAD MAXILLOFACIAL WO CONTRAST ?? Date: [...] Location [address] ORDERABLES from Last 3 Months
--- OUTSIDE RECORDS SUMMARY | 2024-11-25 02:28 | XMS_ITS | Data Portability ---
Author Organization LATONYA JELANISusan Euceda Address [address] [place] [address] Assessment No assessment recorded. Plan of Treatment Reminders Order Date Submit Date Provider Last Modified By Organization Details Last Modified Time Details Appointments None recorded. Lab BMP, serum or plasma 2014 015 [email or web address] [facility], [address] [place] [address], [address], [place], [address], 5 20:07:32 microalbu min/creat inine, mass ratio, urine 2014 015 [facility], [address] [place], [place] [address]angela Mathias, [address], [place], [address], 5 20:07:32 lipid panel, serum 2014 015 [facility]8 [facility], [address] [place], [place] [address]angela Stew, [address], [place], [address], 5 20:07:32 RPR (rapid plasma reagin), serum 2023 024 [facility], [address], [address], [place], [address], 4 06:19:05 HIV 1 + 2, meaningfu l use set 2023 024 [facility], [address] [place], [place] [address], [address], [place], [address], 4 06:19:07 Hepatitis C IgG Ab, qual, serum 2023 [facility], [address] [place] [address], [address], [place], [address], 4 06:19:01 chlamydia trachomat is + neisseria gonorrhoe ae rRNA panel, ARACELIS+probe , nasophary nx 2023 024 [facility], [address] [place] [address], [address], [place], [address], 4 06:19:03 HBsAg (hepatiti s B surface Ag), EIA, serum 2023 [facility], [address] [place] [address], [address], [place], [address], 4 06:19:04 chlamydia trachomat is + neisseria gonorrhoe ae + trichomon as vaginalis rRNA panel, ARACELIS+probe 2023 024 [facility], [address] [place] [address], [address], [place], [address], 4 06:19:[address] referral 2013 014 [email or web address] Not available 5 11:11:53 Procedures None recorded. Surgeries None recorded. Imaging None recorded. Medication Orders cyclobenz aprine 10 mg tablet 2013 014 [facility] [address], [address], 4 16:25:06 meloxicam 7.5 mg tablet 2013 014 [facility] [address], [address], 4 16:24:55 lisinopri l 10 mg-hydroc hlorothia zide 12.5 mg tablet 2013 014 [facility] [address] [facility], [address] [place] [address], [address], 4 16:25:00 lisinopri l 10 mg-hydroc hlorothia zide 12.5 mg tablet 2015 016 [facility] [address], [address], 4 16:25:00 cyclobenz aprine 10 mg tablet 2015 016 [facility] [address], [address], 4 16:25:06 meloxicam 7.5 mg tablet 2015 016 [facility] [address], [address], 4 16:24:55 Patient TargetsNo targets recorded. Patient Instructions Encounter Date Encounter Id Patient Instructions Last Modified By Organization Details Last Modified Time 10/06/2014 [id number] I was present an d available in the Family Medicine clinic to discuss this patient's care during the appointment. I agree with the resident's assessment and plan as documented. Not available 10/07/2014 00:19:40 05/06/2015 [id number] I was present an d available in the Family Medicine clinic to discuss this patient's care during the appointment. I agree with the resident's assessment and plan as documented.? ? ? - Carolina Winter MD Not available 05/11/2015 20:07:32 05/03/2016 [id number] I was present an d available in the Family Medicine clinic to discuss this patient's care during the appointment. I agree with the resident's assessment and plan as documented. [email or web address] Not available 05/15/2016 22:33:59 09/29/2024 [id number] safer sex: care instructions [email or web address] Not available 09/29/2024 16:35:36 Plan of care has been discussed with patient including expected therapeutic benefits and potential side effects of prescribed medication and treatments. Patient verbalizes understanding and is in agreement with the plan of care. Patient was instructed to keep all scheduled appointments and contact the clinic for any additional problems. [email or web address] Not available 10/14/2024 09:17:26 Reason for Referral Neurologist Referral for Jong jenkins Referring Physician: Reyna Tao, [employer], Encounter Date: 10/06/2014 Results Created Date Observation Date Name Description Value Unit Range Abnormal Flag Note LastModifiedBy Organization Detail LastModifiedTime 09/29/2009/30/2024 INTER PRETA TION: interpretati on: Commen t Not infec dominique with HCV unles s early or acute infec tion is suspe cted (whic h may be delay ed in an immun ocomp romis ed indiv idual ), or other evide nce exist s to indic ate HCV infec tion. Not Available [facility] ([facility]) [address] [place], [address], 10/01/2024 06:19:00 09/29/2009/30/2024 HCV ANTIB GLORIA RFX TO QUANT PCR HCV Ab NON REACTI VE nonrea ctive Not Available [facility] ([facility]) [address] [place], [address], 10/01/2024 06:19:00 09/29/2009/30/2024 CT, NG, TRICH VAG BY ARACELIS chlamydia by ARACELIS NEGATI VE negati ve Not Available [facility] ([facility]) [address] [place], [address], 10/01/2024 06:19:02 09/29/2009/30/2024 CT, NG, TRICH VAG BY ARACELIS gonococcus by ARACELIS NEGATI VE negati ve Not Available [facility] ([facility]) [address] [facility], [place], [address], 10/01/2024 06:19:02 09/29/2009/30/2024 CT, NG, TRICH VAG BY ARACELIS trich vag by ARACELIS NEGATI VE negati ve Not Available [facility] ([facility]) [address] [facility], [place], [address], 10/01/2024 06:19:02 09/29/2009/30/2024 CT/GC ARACELIS, PHARY NGEAL C. trachomatis, ARACLEIS, pharyn NEGATI VE negati ve Not Available [facility] ([facility]) [address] [facility], [place], [address], 10/01/2024 06:19:03 09/29/2009/30/2024 CT/GC ARACELIS, PHARY NGEAL N. gonorrhoeae, ARACELIS, pharyn NEGATI VE negati ve Not Available [facility] ([facility]) [address] [facility], [place], [address], 10/01/2024 06:19:03 09/29/2009/30/2024 HBSAG SCREE N HBsAg screen NEGATI VE negati ve Not Available [facility] ([facility]) [address] [place], [address], 10/01/2024 06:19:04 09/29/2009/30/2024 RPR, RFX QN RPR/C ONFIR M TP RPR NON REACTI VE nonrea ctive Not Available [facility] ([facility]) [address] [place], [address], 10/01/2024 06:19:05 09/29/2009/30/2024 HIV AB/P2 4 AG WITH REFLE X HIV Ab/P24 Ag screen NON REACTI VE nonrea ctive HIV-1 /HIV- 2 antib odies and HIV-1 p24 antig en were NOT detec dominique. There is no labor atory evide nce of HIV infec tion. HIV Negat shelton Not Available [facility] ([facility]) [address], [place], [address], 10/01/2024 06:19:07 04/21/20 17 04/21/2017 XR, chest , 1 view No observ ation record ed. [email or web address] Not Available 2016 22:36:44 04/21/20 17 04/21/2017 CT, abdom en + pelvi s, w/ contr ast No observ ation record ed. [email or web address] Not Available 2016 22:36:17 Result Notes None recorded. Problems Name Problem SNOMED Code Status Onset Date Resolution Date Notes Provider Name and Address Organization Details Recorded Time Hypertensive disorder 00961228 Active Tony Edda null, [place] - [facility] 6 22:33:58 Headache 33210080 Active Carolina Winter MD Attn: Lauren curry,[address] [facility], [place], [address], [facility] - [facility] 4 00:19:39 Chronic back pain 908443983 Active Tony Edda null, [place] - [facility] 6 22:33:58 Problem Notes None recorded. Procedures Surgical History Date Name Laterality Status Provider Name and Address Organization Details Recorded Time ureterorenoscopy with fragmentation and removal of calculus of kidney completed Nicki Valle MA [facility] 09/29/2024 16:28:17 Imaging Results Imaging Date Name Status [facility]Modified by [facility] Details LastModified Time 04/21/2017 XR, chest, 1 view completed Information not available 04/24/2017 22:36:44 04/21/2017 CT, abdomen + pelvis, w/ contrast completed Information not available 04/24/2017 22:36:17 Procedure Notes None recorded. Medical Equipment None Reported. Allergies Allergen ID Allergen Name Allergen Category Reaction Reaction Severity Criticality Documentation Date Start Date Code Code System Note Provider Name and Address Organization Details Recorded Time 613 Medicinal product containin g penicilli n and acting as antibacte rial agent (product) medicatio n Not available Not available Not available 10/06/2014 79480 05 SNOMED Codie chavez, [facility] 4 16:59:40 Medications Name Sig Start Date [...] Available Vitals Date Recorded Body height Body weight Body temperature Heart rate Body mass index (BMI) Systolic blood pressure Diastolic blood pressure Provider Name and Address Organization Details Last Updated DateTime 5 177.8 cm 747998. 63652 g 97.3 [degF] 90 /min 35.2 kg/m2 152 mm[Hg] 110 mm[Hg] Nas Davis MA [facility] 5 11:58:11 Date Recorded Body height Body mass index (BMI) Body weight Oxygen saturation Oxygen saturation in Arterial blood by Pulse oximetry Heart rate Respiratory rate Body temperature Systolic blood pressure Diastolic blood pressure Provider Name and Address Organization Details Last Updated DateTime 4 177.8 cm 32 kg/m2 400139. 85 g 98 % 98 % 66 /min 16 /min 97.3 [degF] 151 mm[Hg] 104 mm[Hg] Nicki Valle MA [facility] 4 16:30:46 Date Recorded Heart rate Body height Oxygen saturation Oxygen saturation in Arterial blood by Pulse oximetry Body temperature Body mass index (BMI) Body weight Systolic blood pressure Diastolic blood pressure Provider Name and Address Organization Details Last Updated DateTime 6 59 /min 177.8 cm 98 % 98 % 97.8 [degF] 33.9 kg/m2 402034. 55756 g 128 mm[Hg] 82 mm[Hg] Chandu Barfield MA [facility] 6 08:50:32 Date Recorded Body weight Heart rate Body mass index (BMI) Body height Body temperature Systolic blood pressure Diastolic blood pressure Provider Name and Address Organization Details Last Updated DateTime 4 104301. 93167 g 100 /min 35.3 kg/m2 177.8 cm 98.4 [degF] 140 mm[Hg] 80 mm[Hg] Codierekha Cardenas [facility] 4 16:59:40 Social History Question Answer Notes LastModified by Organizat ion Details LastModified Time Tobacco Smoking Status Never Smoker Codie Cardenas [facility] 10/06/2014 16:59:40 What Is Your Level Of [...] SNOMED-CT Code Diagnosis ICD10 Code Diagnosis Note 1918 Reyna Dinh lacy [facility] ([address]) [address] [facility] [place] [address] 10/06/2014 16:44:56 10/07/2014 00:19:58 Headache 64722457 Referred to neurology but still has not gone due to restrictio n by Dr. Meng's office and conflict with patient's work hours. Patient now referred to [place] to see if new doctor will have hours that are available to him. Aware that if headaches acutely worsen to please let us know or go to ER. Chronic back pain 611927690 Controlled currently with daily Mobic 7.5mg and flexeril BID. Lengthy discussion on core strengthen ing exercises and recommende d weight loss and possible joining a gym to help his lower back pain. [id number] [facility] ([address]) [address] [place] [address] 05/06/2015 11:44:35 05/07/2015 14:56:42 Hypertensive disorder 55105189 BP 152/110 but on second take 140/80 when taken by myself. Patient endorses missing medication doses. Stressed compliance . Is usually around 140/80 and does not have history of kidney dysfunctio n. With further exploratio ns diet is not DASH and included high salt content as well as no activity at all. Discussed lifestyle modificati ons and will repeat BP next visit. Need to monitor may need more medication added on if we can not get better control and patient says he is taking his medication everyday. Continue to encourage abstinence from cigarettes and alcohol. Also is working on cutting back caffeine in take. [id number] Tony Bañuelos [facility] bambi FP ([address]) [address] [place] [address] 05/03/2016 08:31:07 05/03/2016 14:23:19 Chronic back pain 703369733 G89.29 Chronic back pain 2/2 scoliosis. Pt has a PMH of scoliosis since age 16. -Pt reports that he does not currently do any PT exercises to help with scoliosis 2/2 not having insurance at the moment. -Pt willing to consider PT referral in Jun 2016 after insurance starts -Refilled meds as prescribed Hypertensive disorder 38 580289 I10 31 yo M presents for refill of meds for HTN. Pt requests refills of Lisinopril -HCTZ. Pt denies any cp/sob/n/v /f/c/lara. Chronic condition; currently well-contr olled BG=431/84 Continue current regimen Lisinopril 10mg-HCTZ 12.5mg 1 tab PO QD Discussed the importance of annual eye exam, eating healthy diet and exercising regularly Refilled meds f/u 3mo [id number] [facility] [address] [place] [address] 09/29/2024 15:57:30 10/14/2024 11:38:46 Venereal disease screening 590773610 Z11.3 -Patient agreeable to HIV, syphilis, hepatitis b and c, and STD screening. -CORRECTIONAL THERAPY DIRECTOR discussed importance of safe sex practices including condom use to prevent STDs and unplanned and to limit number of sexual partners to reduce exposure to STDs.-CORRECTIONAL THERAPY DIRECTOR provided safer sex care instructio ns. Health Concerns Section Related Observation LastModified by Organization Detai ls LastModified Time None Recorded Concern Status LastModified by Organization Details LastModified Time None Recorded Advance Directives Directive None Recorded Payers Encounter Date Sequence Insurance Name Policy Number Policy Lambert Covered Member ID Lambert Member ID Guarantor Name 10/06/2014 SLIDING FEE SCHEDULE - DISCOUNT Kelvin Beckham 05/06/2015 1 *SELF PAY* La nce Beckham 09/29/2024 1 *SELF PAY* La nce Beckham Notes Date Note Type Note Provider Name and Address Organization Details Recorded Time 05/03/2016 text/html Generic HPI TemplateReported bypatient.Notes:31 yo M presents for refill of meds for HTN. Pt has a PMH of scoliosis since age 16. Pt reports that he does not currently do any PT exercises to help with scoliosis 2/2 not having insurance at the moment. Pt requests refills of Lisinopril-HCTZ, flexeril and Mobic. Pt denies any cp/sob/n/v/f/c/lara. Tony Bañuelos [place], [place] - [facility] 05/15/2016 22:34:00 09/29/2024 text/html Patient presents to the clinic with acute concerns for STDs. Patient is established with Dr. Zeng for primary care. Patient's past medical history includes headache, hypertension, back pain, and kidney stones. STD Screening-Patient denies history of STDs-Patient reports history of male and female partners.-Patient reports history of oral, vaginal, and anal sexual intercourse-Patient reports he uses condoms consistently.-Patient denies having ay symptoms of penile discharge, urinary symptoms, or pelvic pain. FIDENCIO PEPE Attn: Accounting,[address] [place], [address], [facility] - [facility] 10/14/2024 09:19:07
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
--- OUTSIDE RECORDS SUMMARY | 2024-11-25 02:28 | XMS_ITS ---
Author Organization [facility] Address [address] [facility] [address] [place] [address] Care Team Providers Care Research And Development Specialist Name Role Phone Meredith Merchant NP Primary Care Provider UnavailErnestine Crooks Unavailable [phone] REASON FOR VISIT Walk-In, Depression screening positive Social History Tobacco Use: Social History Observation Description Date Details (start date - stop date) Never Smoker NA - NA Sex Assigned At : Social History Observation Description Sex Assigned At Male Tobacco Control (Standard) Question Answer Notes Tobacco use: Nonsmoker Problems Problem Type SNOMED Code ICD Code Onset Dates Problem Status W/U Status Risk Notes Problem Generalized anxiety disorder (38789787) Generalized anxiety disorder (F41.1) Active confirmed Problem Severe recurrent major depression without psychotic features (89038246) Major depressive disorder, recurrent severe without psychotic features (F33.2) Active confirmed Problem Insomnia (827425465) Insomnia (G47.00) Active confirmed Problem Adjustment disorder (06529590) Trauma and stressor-relate d disorder (F43.9) Active confirmed Encounters Encounter Location Date Provider Diagnosis [facility], Walkin [address] [place] [address] 11/05/2024 Ernestine Cornell Generalized anxiety disorder F41.1 ; Major depressive disorder, recurrent severe without psychotic features F33.2 ; Insomnia G47.00 and Trauma and stressor-related disorder F43.9 Assessments Encounter Date Diagnosis (ICD Code) Assessment Notes Treatment Notes Treatment Clinical Notes Section Notes 11/05/2024 Generalized anxiety disorder (ICD-10 - F41.1) Preferred name: Celeste Pronouns: he/she/they. 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 Family History of MH/CASANDRA: None known Physical Medical Conditions: asthma, scoliosis, operation to remove kidney stones Spiritual Beliefs: Raised worship, grandfather was the sheetrock applicator, has been told by others that the denomination sounded like a cult. Religious of [employer]. Differing beliefs. Still believes [...] including attending local support groups such as [employer] and [employer]. 3. Sleep Disturbances and Nightmares - Assess [...] additional support or have any questions. 11/05/2024 Major depressive disorder, recurrent severe without psychotic features (ICD-10 - F33.2) Preferred name: Celeste Pronouns: he/she/they. 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 Family History of MH/CASANDRA: None known Physical Medical Conditions: asthma, scoliosis, operation to remove kidney stones Spiritual Beliefs: Raised worship, grandfather was the sheetrock applicator, has been told by others that the denomination sounded like a cult. Religious of [employer]. Differing beliefs. Still believes [...] including attending local support groups such as [employer] and [employer]. 3. Sleep Disturbances and Nightmares - Assess [...] additional support or have any questions. 11/05/2024 Insomnia (ICD-10 - G47.00) Preferred name: Celeste Pronouns: he/she/they. 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 Family History of MH/CASANDRA: None known Physical Medical Conditions: asthma, scoliosis, operation to remove kidney stones Spiritual Beliefs: Raised worship, grandfather was the sheetrock applicator, has been told by others that the denomination sounded like a cult. Religious of [employer]. Differing beliefs. Still believes [...] including attending local support groups such as [employer] and [employer]. 3. 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 Family History of MH/CASANDRA: None known Physical Medical Conditions: asthma, scoliosis, operation to remove kidney stones Spiritual Beliefs: Raised worship, grandfather was the sheetrock applicator, has been told by others that the denomination sounded like a cult. Religious of [employer]. Differing beliefs. Still believes [...] including attending local support groups such as [employer] and [employer]. 3. Sleep Disturbances and Nightmares - Assess [...] need additional support or have any questions. Plan Of Treatment Next Appt Details Follow Up: 1 Week, Reason: Provider Name:Ernestine sandres, 11/28/2024 08:00:00 AM, [address] [facility] [address], [facility] [address], [place], [address], Progress Notes * JESSIE MIRANDAOB:1985 ( 39 yo M)Acc No.[id number]:11/05/2024 Patient:?MARILOU MIRANDA Provider:?Ernestine Cornell :1985???Age:39 Y???Sex:Male Edmond e:11/05/2024 Phone: Address:[address] [place], [place] [phone] Pcp:Meredith Merchant NP Data: * Time Tracker: * Date Start Time End Time Duration User Type Captured By Mode Notes 11/05/2024 09:06 AM 09:59 AM 00:53:14 Therapist Doroteo Cornell Timer * Chief Complaints: * ???1. Walk-In. 2. Depression screening positive. * HPI: ???Depression Screening:?SAM-7 (2018 Edition)?Feeling nervous, anxious, or on edge?Several days,?Not being able to stop or control worrying?More than half the days,?Worrying too much about different things?More than hafl the days,?Trouble relaxing?More than half the days,?Being so restless that it is hard to sit still?More than half the days,?Becoming easily annoyed or irritable?More than half the days,?Feeling afraid as if something awful might happen?Several days,?Total SAM-7 Score?12,?Interpretation of Total?(10 to 14) Moderate.?Depression screening:?PHQ-9?Little interest or pleasure in doing things?Several days,?Feeling down, depressed, or hopeless?Several days,?Trouble falling or staying asleep, or sleeping too much?Nearly every day,?Feeling tired or having little energy Nearly every day,?Poor appetite or overeating?More than half the days,?Feeling bad about yourself or that you are a failure, or have let yourself or your family down?More than half the days,?Trouble concentrating on things, such as reading the newspaper or watching television?More than half the days,?Moving or speaking so slowly that other [...] return when and if necessary,?Suicide Risk Assessment Performed?11/05/2024 ,?Additional Evaluation for Depression?Psychiatric interview and evaluation,?Name of the standardized tool used for adult depression screening:?Patient Health Questionnaire (PHQ-9).?Functional Status:? Client presents today for psychotherapy to treat depression and anxiety. Client denies wanting to harm self or others at this time. Discussed continued treatment with client. They would like to meet again in one week. The patient, preferred name Celeste, presents with a complex history of multiple traumas, including childhood experiences, the loss of their , their grandfather's passing, and recent work-related trauma. They express difficulty in opening up to new people, citing negative experiences with previous therapists. Celeste voices concerns about establishing a therapeutic relationship, fearing the potential need to transition to another therapist in the future. Celeste describes a strained family relationship, stemming from their worship upbringing, which has been characterized by others as cult-like. This has resulted in a 16-17 year estrangement from their family. Identifying as gender fluid or 2- spirit, Celeste has been presenting as more feminine since their early teens. 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 The patient reports significant sleep disturbances, including racing thoughts, difficulty falling and staying asleep, and frequent nightmares. They also mention experiencing sleep paralysis, though they have never undergone a sleep study. Celeste's appetite is poor, often eating only once daily, but they do enjoy protein shakes and smoothies. Regarding substance use, Celeste has a history of alcohol and cocaine use but has been sober from cocaine for two years. They currently drink alcohol socially, 2- 3 times a week, consuming 2-3 beers and one or two shots per occasion. The patient reports no concerns with gambling or other addictive behaviors. Celeste experiences frequent racing thoughts and often gets stuck on particular thoughts. They report difficulty controlling anger, though note it takes significant provocation to reach that point. The patient's interests include playing Dungeons and Dragons, listening to music, and attending social events where they can express their authentic self. They struggle with guilt and negative thoughts, often missing opportunities due to anxiety and overthinking. * Behavioral History: ???Past psychiatric Hospitalization:No.?History of suicidal attempt?:Yes.? * Medical History:? * Hospitalization/Major Diagno stic Procedure:?Denies Past Hospitalization. * Family History:?Mother: kev lacy.?Maternal Grandfather: .?Maternal Grandmother: alive.?1 sister(s) . .? None known. * Social History:?Tobacco Use:?Tobacco Control (Standard)?Tobacco use:?Nonsmoker.?Drug/Alcohol:?Drugs?Have you used drugs other than those for medical reasons in the past 12 months??No.?Do you drink alcohol?: Yes, socially.. 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 * Vitals:? * Examination: ???General Examination: ???- Mental Status Examination: - Patient expressed difficulty opening up to new people and anxiety about having to change therapists. - Described multiple traumatic events including childhood trauma, the of a and grandfather, and job-related trauma. - No suicidal ideation or homicidal ideation reported. - Sleep disturbances noted, including difficulty falling and staying asleep, frequent nightmares, and sleep paralysis. - Patient reported racing thoughts and overthinking. - Expressed feelings of guilt and ongoing negative thoughts. - Emotional during the session, indicating a high level of distress. - Physical Examination: - Patient reported chronic physical conditions including asthma and scoliosis. - History of kidney stones requiring surgical intervention. - No current use of prescribed medications reported. ???Psychiatry: ?Appearance:?well-groomed.?Abnormal body movements:?none.?Affect / mood:?depressed.?Aggression:?low.?Anger control:?good.?Attention:?normal in conversation.?Attitude:?cooperative.?Homicidal ideation:?none.?Suicidal ideation:?none.?Memory status:?no impairment noted.?Degree of awareness of surroundings:?within normal limits.?Delusions:?no.?Hallucinations:?no.?Impulse control:?good.?Insight:?good.?Intellectual functioning:?no impairment noted.?Judgement:?good.?Orientation:?awake, alert and oriented x 3.?Perceptual disorders:?no perceptual disorder noted.?Psychomotor activity:?within normal range.?Speech / language:?normal rate, volume, and articulation (RVR).?Thought content:?appropriate.?Thought process:?racing thoughts.? Assessment: * Assessment: 1.?Generalized anxiety disor christin - F41.1 (Primary)???2.?Major depressive disorder, recurrent severe without psychotic features - F33.2???3.?Insomnia - G47.00???4.?Trauma and stressor-related disorder - F43.9??? Preferred name: Celeste Pronouns: he/she/they. 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 Family History of MH/CASANDRA: None known Physical Medical Conditions: asthma, scoliosis, operation to remove kidney stones Spiritual Beliefs: Raised worship, grandfather was the sheetrock applicator, has been told by others that the denomination sounded like a cult. Religious of [employer]. Differing beliefs. Still believes [...] I do seems to get me by. Interests/Skills/Hobbies: DnD, music Goal(s) for Therapy: I just [...] including attending local support groups such as [employer] and [employer]. 3. Sleep Disturbances and Nightmares - Assess [...] Assist the patient in improving communication and relationship-building skills. Follow-up: - Schedule weekly therapy sessions to monitor progress and address any new concerns. - Reassess the patient's needs and adjust the treatment plan as necessary. - Encourage the patient to reach out between sessions if they need additional support or have any questions. Plan: * Behavioral Health Treatment Plan: ???Imported Date:11/05/2024 10:49 AM??Imported By:Ernestine Cornell???Short Term Therapy ProgramStrengthsGood social supportSelf-awareness [...] Target Date Assigned To Priority Statu s 0% 2024-11-05 2025-02-03 Ernestine Cornell 0 Open Objective* Learn and implement calming skills to reduce overall anxiety and manage anxiety symptoms. Progress Start Date Target Date Assigned To Status 0% 2024-11-05 2025-02-03 Ernestine Cornell Intervention* Teach the [...] 2025-02-03 Ernestine Cornell * Treatment: * Procedure Codes:?32642 BEHAV ASSMT W/SCORE & DOCD/STAND INSTRUMENT, 87567 PSYCHIATRIC DIAGNOSTIC EVALUATION * Follow Up:?1 Week * Billing Information: * Visit Code:? * Procedure Codes:? 75209 BEHAV ASSMT W/SCORE & DOCD/STAND INSTRUMENT. 19853 PSYCHIATRIC DIAGNOSTIC EVALUATION. * [employer] EXCHANGE ARCHITECT Sign off status: Completed Signatures: No Ad Hoc Signature Added true * Provider:?Ernestine Cornell Date:?2023 Generated for Atif rachel/Chaitanya/Nadja on:?11/25/2024 02:28 AM [employer] EXCHANGE ARCHITECT
--- OUTSIDE RECORDS SUMMARY | 2024-11-25 06:31 | XMS_ITS | Clinical Summary ---
Author Organization [facility] Address [address] [place] [address] Phone Care Team Providers Care Locker Operator Name Role Phone Unavailable Primary Care [...] STL ABSTRACTION Provider, Abstract 11/15/2024 7:12 AM [facility] - 11/15/2024 9:27 AM [facility] Emergency [facility] Emergency Department [address] [place] [phone] Ron Meehan DO Flank pain (Primary Dx) Discharge Disposition: Home or Self Care 11/13/2024 2:43 AM [facility] - 11/13/2024 3:58 AM [facility] Emergency Department [address] [place] [phone] Jacob Holliday DO Closed head injury, initial [...] Comments Blood Pressure 121/88 11/15/2024 8:30 AM [facility] Pulse 57 11/15/2024 8:30 AM [facility] Temperature 36.6 ??C (97.8 ??F) 11/15/2024 9:08 AM CS T Respiratory Rate 16 11/15/2024 8:30 AM [facility] Oxygen Saturation 96% 11/15/2024 8:30 AM [facility] Inhaled Oxygen Concentration - - Weight 102.1 kg (225 lb) 11/15/2024 6:16 AM [facility] Height 175.3 cm (5' 9 ) 11/15/2024 6:16 AM [facility] Body Mass Index 33.23 11/15/2024 6:16 AM [facility] Plan of Treatment Health Maintenance Due Date [...] PELVIS W CONTRAST Stat 11/15/2024 7:52 AM [facility] POC CREATININE Stat 11/15/2024 7:34 AM [facility] COMPREHENSIVE METABOLIC PANEL Stat 11/15/2024 7:29 AM [facility] CBC WITH DIFFERENTIAL Stat 11/15/2024 7:29 AM [facility] DRUG SCREEN, URINE Stat 11/15/2024 6: 36 AM [facility] URINALYSIS W/REFLEX MICROSCOPIC Stat 11/15/2024 6:36 AM [facility] URINE CULTURE Stat 11/15/2024 6:[address] HEAD MAXILLOFACIAL WO CONTRAST Stat 11/13/2024 3:29 AM [facility] from Last 3 Months Results * CT ABDOMEN PELVIS W CONTRAST (11/15/2024 7:52 AM [facility]) Anatomical Region Laterality Modality Abdomen Computed Tomogra phy 11/15/2024 7:53 AM [facility] Impressions 11/15/2024 8:11 AM [facility] IMPRESSION: ?? Multiple bilateral nonobstructing renal calculi [...] Reconstruction Technique. ?? DICTATION LOCATION: Location 1 [facility] 11/15/2024 8:11 AM [facility] COMPUTED TOMOGRAPHY OF THE ABDOMEN AND PELVIS [...] Reconstruction Technique. DICTATION LOCATION: Location [facility] * POC CREATININE (11/15/2024 7:34 AM [facility]) CREATININE POC 1.10 0.70 - 1.20 mg/dL 11/15/2024 7:34 AM [facility] GFR POC >60 >=60 mL/min/1.7 3 sq meter 11/15/2024 7:34 AM [facility] [employer] [facility] Comment:eGFR calculated with 2020 CKD-EPI equation. Vegetarian diet, extremely high or low muscle mass, and may affect results. Cystatin C with Glomerular Filtration Rate is a suitable alternative for these patients. Blood, whole 11/15/2024 7:34 AM [facility] 11/15/2024 7:40 AM [facility] Ron Meehan DO POINT OF CARE TESTI [facility]# [id number] [address] [facility] [place] [address] * (ABNORMAL) CBC WITH DIFFERENTIAL (11/15/2024 7:29 AM [facility]) WBC 12.5(H) 4.0 - 9.8 K/uL 11/15/2024 7:45 AM [facility] RBC 4.72 4.50 - 5.40 M/uL 11/15/2024 7:45 AM [facility] HEMOGLOBIN 14.9 13.6 - 16.5 g/dL 11/15/2024 7:45 AM [facility] HEMATOCRIT 43.4 40.0 - 48.0 % 11/15/2024 7:45 AM [facility] MCV 91.9 82.0 - 99.0 fL 11/15/2024 7:45 AM [facility] MCH 31.6 27.2 - 32.6 pg 11/15/2024 7:45 AM [facility] MCHC 34.3 31.5 - 35.5 g/dL 11/15/2024 7:45 AM [facility] RDW 13.0 11.5 - 14.5 % 11/15/2024 7:45 AM [facility] RDW-STDEV 44.1 37.1 - 48.7 fL 11/15/2024 7:45 AM [facility] PLATELETS 314 140 - 350 K/uL 11/15/2024 7:45 AM [facility] MPV 9.8 9.3 - 12.4 fL 11/15/2024 7:45 AM [facility] NEUTROPHILS 64 % 11/15/2024 7:45 AM [facility] LYMPHOCYTES 24 % 11/15/2024 7:45 AM [facility] MONOCYTES 8 % 11/15/2024 7:45 AM [facility] EOSINOPHILS 4 % 11/15/2024 7:45 AM [facility] BASOPHILS 1 % 11/15/2024 7:45 AM [facility] IMMATURE GRANULOCYTES 0 % 11/15/2024 7:45 AM [facility] NEUTROPHIL ABSOLUTE 7.94(H) 1.90 - 7.00 K/uL 11/15/2024 7:45 AM [facility] LYMPHOCYTE ABSOLUTE 2.95 0.70 - 4.50 K/uL 11/15/2024 7:45 AM [facility] MONOCYTE ABSOLUTE 0.98 0.10 - 1.30 K/uL 11/15/2024 7:45 AM [facility] EOSINOPHIL ABSOLUTE 0.49 0.00 - 0.70 K/uL 11/15/2024 7:45 AM [facility] BASOPHILS ABSOLUTE 0.06 0.00 - 0.20 K/uL 11/15/2024 7:45 AM [facility] IMMATURE GRANULOCYTES ABSOLUTE 0.05(H) 0.00 - 0.03 K/uL 11/15/2024 7:45 AM [facility] Blood Venipuncture / Unknown 11/15/2024 7:29 AM [facility] 11/15/2024 7:33 AM [facility] Ron Meehan DO HEMATOLOGY ORDERABL ES [facility] LABORATORY SERVICES [facility]# [id number] 5 [facility] [place] [address] * (ABNORMAL) COMPREHENSIVE METABOLIC PANEL (11/15/2024 7:29 AM [facility]) SODIUM 137 136 - 145 mmol/L 11/15/2024 8:21 AM [facility] POTASSIUM 3.7 3.5 - 5.0 mmol/L 11/15/2024 8:21 AM [facility] CHLORIDE 101 98 - 107 mmol/L 11/15/2024 8:21 AM [facility] CO2 27 22 - 29 mmol/L 11/15/2024 8:21 AM [facility] CALCIUM 9.7 8.6 - 10.2 mg/dL 11/15/2024 8:21 AM [facility] BUN 17 6 - 20 mg/dL 11/15/2024 8:21 AM [facility] CREATININE 0.98 0.67 - 1.17 mg/dL 11/15/2024 8:21 AM [facility] GLUCOSE 94 74 - 99 mg/dL 11/15/2024 8:21 AM [facility] TOTAL PROTEIN 7.8 6.7 - 8.6 g/dL 11/15/2024 8:21 AM [facility] ALBUMIN 4.4 3.5 - 5.2 g/dL 11/15/2024 8:21 AM [facility] BILIRUBIN TOTAL 0.6 0.3 - 1.2 mg/dL 11/15/2024 8:21 AM [facility] ALKALINE PHOSPHATASE 112 40 - 129 U/L 11/15/2024 8:21 AM [facility] AST 50(H) <41 U/L 11/15/2024 8:21 AM [facility] ALT 51(H) <42 U/L 11/15/2024 8:21 AM [facility] GFR >60 >=60 mL/min/1.7 3 sq meter 11/15/2024 8:21 AM [facility] Comment:eGFR calculated with 2020 CKD-EPI equation. Vegetarian diet, extremely high or low muscle mass, and may affect results. Cystatin C with Glomerular Filtration Rate is a suitable alternative for these patients. ANION GAP 9 8 - 16 mmol/L 11/15/2024 8:21 AM [facility] Blood Venipuncture / Unknown 11/15/2024 7:29 AM [facility] 11/15/2024 7:33 AM [facility] - 11/15/2024 8:21 AM [facility] Samples containing indocyanine green cause interferences on Total and/or Direct Bilirubin and must not be measured. Ron Meehan DO CHEMISTRY ORDERABLE [facility] [id number] [address] [place] [address] * DRUG SCREEN, URINE (11/15/2024 6:36 AM [facility]) AMPHETAMINE QUAL, URINE Negative Negative 11/15/2024 10:34 AM [facility] BARBITURATE QUAL, URINE Negative Negative 11/15/2024 10:34 AM [facility] [employer] [facility] BENZODIAZEPINE QUAL, URINE Negative Negative 11/15/2024 10:34 AM [facility] [employer] [facility] COCAINE QUAL URINE Negative Negative 2023 10:34 AM [facility] [employer] [facility] OPIATE QUAL, URINE Negative Negative 2023 10:34 AM [facility] CANNABINOIDS QUAL, URINE Negative Negative 11/15/2024 10:34 AM [facility] PCP QUAL, URINE Negative Negative 10:34 AM [facility] [employer] [facility] OXYCODONE QUAL, URINE Negative Negative 11/15/2024 10:34 AM [facility] [employer] [facility] METHADONE QUAL, URINE Negative Negative 11/15/2024 10:34 AM [facility] [employer] [facility] FENTANYL QUAL, URINE Negative Negative 11/15/2024 10:34 AM [facility] [employer] [facility] CREATININE, URINE 167.0 40.0 - 278.0 mg/dL 11/15/2024 10:34 AM [facility] [employer] [facility] Comment:Reference Range vari es with fluid intake and diet. Urine URINE SPECIMEN OBTAINED BY CLEAN CATCH PROCEDURE / Unknown Collection / Unknown 11/15/2024 6:36 AM [facility] 11/15/2024 6:42 AM [facility] - 11/15/2024 10:34 AM [facility] This test is a qualitative screen. [...] ?5 ng/mL Ron Meehan DO URINE ORDERABLES [facility] [employer] [facility]# [id number] [address] [facility] [place] [address] * (ABNORMAL) URINALYSIS WITH REFLEX MICROSCOPIC (11/15/2024 6:36 AM [facility]) COLOR UA Yellow Pale to Dark Yellow 11/15/2024 7:04 AM [facility] [employer] SERVICES [facility] CLARITY UA Clear Clear 11/15/2024 7:04 AM [facility] [employer] [facility] SPECIFIC GRAVITY UA 1.021 1.003 - 1.035 11/15/2024 7:04 AM [facility] [employer] [facility] PH UA 5.0 5.0 - 8.0 11/15/2024 7:04 AM [facility] LEUKOCYTE ESTERASE UA 1+(A) Negative 11/15/2024 7:04 AM [facility] [employer] [facility] NITRITE UA Negative Negative 11/15/2024 7:04 AM [facility] [employer] [facility] PROTEIN UA Negative Negative 11/15/2024 7:04 AM [facility] [employer] [facility] GLUCOSE UA Negative Negative 11/15/2024 7:04 AM [facility] [employer] [facility] KETONES UA Trace(A) Negative 11/15/2024 7:04 AM [facility] UROBILINOGEN UA Normal <2.0 mg/dL 7:04 AM [facility] [employer] [facility] BILIRUBIN UA Negative Negative 11/15/2024 7:04 AM [facility] BLOOD UA Negative Negative 11/15/2024 7:04 AM [facility] [employer] [facility] WBC UA 26-50(A) 0 - 2 /hpf 11/15/2024 7:04 AM [facility] RBC UA 3-5(A) 0 - 2 /hpf 11/15/2024 7:04 AM [facility] [employer] [facility] BACTERIA UA Negative Negative /hpf 11/15/2024 7:04 AM [facility] [employer] [facility] EPITHELIAL CELLS, URINE 0-5 0 - 5 /hpf 11/15/2024 7:04 AM [facility] [employer] [facility] Urine URINE SPECIMEN OBTAINED BY CLEAN CATCH PROCEDURE / Unknown Collection / Unknown 11/15/2024 6:36 AM [facility] 11/15/2024 6:42 AM [facility] Ron Meehan DO URINE ORDERABLES [facility]# [id number] [address] [place] [address] [place] [address] * URINE CULTURE (11/15/2024 6:36 AM [facility]) CULTURE No growth at 24 hours 11/16/2024 7:59 AM [facility] [employer] [facility] Urine URINE SPECIMEN OBTAINED BY CLEAN CATCH PROCEDURE / Unknown Collection / Unknown 11/15/2024 6:36 AM [facility] 11/15/2024 6:42 AM [facility] Ron Meehan DO MICROBIOLOGY - GENE RAL [facility]ABLES [facility]# [id number] [place] [address] * CT HEAD MAXILLOFACIAL WO CONTRAST (11/13/2024 3:29 AM [facility]) Anatomical Region Laterality Modality Head Computed Tomogra phy 11/13/2024 3:35 AM [facility] Impressions 11/13/2024 3:48 AM [facility] Impression: 1. ??No acute intracranial process. 2. ??No acute facial bone fracture. DICTATION LOCATION: Location 4 Narrative 11/13/2024 3:[address] HEAD MAXILLOFACIAL WO CONTRAST ?? Date: [...]
--- OUTSIDE RECORDS SUMMARY | 2024-11-25 06:31 | XMS_ITS | Encounter Summary ---
Author Organization [facility] Address [address] [place] [address] Care Team Providers Care Door Builder Name Role Phone Unavailable Primary Care Provider Unavailabl e Reason for Visit * Reason Comments Flank Pain Right sided flank pa in began last night. Hx of kidney stones. Pain feels the same. Denies nausea, vomiting, fever and urinary symptoms. * Auth/Cert (Routine) Specialty Diagnoses / Procedures Referred By Contac t Referred To Contact Emergency Medicine [facility] Emergency Dept [address] [place] [address] Referral ID Status Reason Start Date Expiration Date Visits Re quested Visits Authorized [id number] 1 1 Encounter Details Date Type Department Care Team (Late st Contact Info) Description 11/15/2024 7:12 AM EVENT MARKETING ASSISTANT - 11/15/2024 9:27 AM [facility] Emergency [facility] Emergency Department [address] [place] [address] [place] [address] [place] [id number] Flank pain (Primary Dx) Discharge Disposition: Home [...] Comments Blood Pressure 121/88 11/15/2024 8:30 AM EVENT MARKETING ASSISTANT Pulse 57 11/15/2024 8:30 AM EVENT MARKETING ASSISTANT Temperature 36.6 ??C (97.8 ??F) 11/15/2024 9:08 AM CS T Respiratory Rate 16 11/15/2024 8:30 AM EVENT MARKETING ASSISTANT Oxygen Saturation 96% 11/15/2024 8:30 AM EVENT MARKETING ASSISTANT Inhaled Oxygen Concentration - - Weight 102.1 kg (225 lb) 11/15/2024 6:16 AM EVENT MARKETING ASSISTANT Height 175.3 cm (5' 9 ) 11/15/2024 6:16 AM EVENT MARKETING ASSISTANT Body Mass Index 33.23 11/15/2024 6:16 AM EVENT MARKETING ASSISTANT documented in this encounter Discharge Instructions * Discharge Instructions* Ron Meehan DO - 11/15/2024 8:48 AM EVENT MARKETING ASSISTANT Ice/moist heat to area 10 minutes every 2 hours Rx attached We will send a urine culture and notify you if there is positive results. You have been educated on red flags and returning criteria production staff worker to assist with PCP T MARKETING ASSISTANT * Attachments The following attachments cannot be sent through Care Everywhere. * Flank Pain (Portuguese) documented in this encounter Medications at Time [...] patient. Patient verbalizes understanding. All questions answered. T MARKETING ASSISTANT * Nas Guido RN - 11/15/2024 8:34 AM CST Shefali CAMARILLO at bedside with update on POC. T MARKETING ASSISTANT * Ron Meehan, DO - 11/15/2024 7:28 [...] Reconstruction Technique. DICTATION LOCATION: Location 1 - [facility] \ PROCEDURES Procedures MEDICAL DECISION MAKING AND [...] or acute base findings. Toradol given. [PP] 4096 Educated patient on his lab and imaging [...] base findings. Will Rx with outpatient follow-up. production staff worker assistance with PCP. Educated on red [...] Date/Time Order Dose Route Action 11/15/2024 0730 EVENT MARKETING ASSISTANT sodium chloride 0.9% bolus solution 1,000 mL 1,000 mL IV Bolus 11/15/2024 0753 EVENT MARKETING ASSISTANT sodium chloride flush injection 10 mL 10 mL IV Given 11/15/2024 0753 EVENT MARKETING ASSISTANT iopamidoL (ISOVUE-300) 61% injection (drawn from multi-use bulk pack) 100 mL 100 mL IV Contrast Given 11/15/2024 0815 EVENT MARKETING ASSISTANT ketorolac (TORADOL) injection 10 mg 10 mg [...] and medical decision making performed by me. T MARKETING ASSISTANT * Nas Guido RN - 11/15/2024 7:22 [...] and locked position. Call light within reach. T MARKETING ASSISTANT documented in this encounter Plan of Treatment Not on file documented as of this encounter Procedures Procedure Name Priority Date/Time Associated Diagnosis Comments CT ABDOMEN PELVIS W CONTRAST Stat 11/15/2024 7:52 AM EVENT MARKETING ASSISTANT POC CREATININE Stat 11/15/2024 7:34 AM EVENT MARKETING ASSISTANT CBC WITH DIFFERENTIAL Stat 11/15/2024 7:29 AM EVENT MARKETING ASSISTANT COMPREHENSIVE METABOLIC PANEL Stat 11/15/2024 7:29 AM EVENT MARKETING ASSISTANT DRUG SCREEN, URINE Stat 11/15/2024 6: 36 AM EVENT MARKETING ASSISTANT URINALYSIS W/REFLEX MICROSCOPIC Stat 11/15/2024 6:36 AM EVENT MARKETING ASSISTANT URINE CULTURE Stat 11/15/2024 6:36 AM EVENT MARKETING ASSISTANT documented in this encounter Results * CT ABDOMEN PELVIS W CONTRAST (11/15/2024 7:52 AM EVENT MARKETING ASSISTANT) Anatomical Region Laterality Modality Abdomen Computed Tomogra phy 11/15/2024 7:53 AM EVENT MARKETING ASSISTANT Impressions 11/15/2024 8:11 AM EVENT MARKETING ASSISTANT IMPRESSION: ?? Multiple bilateral nonobstructing renal calculi [...] Technique. ?? DICTATION LOCATION: Location 1 - [facility] 11/15/2024 8:11 AM EVENT MARKETING ASSISTANT COMPUTED TOMOGRAPHY OF THE ABDOMEN AND PELVIS [...] Reconstruction Technique. DICTATION LOCATION: Location 1 - [facility] Ron Meehan DO CT ORDERABLES * POC CREATININE (11/15/2024 7:34 AM EVENT MARKETING ASSISTANT) CREATININE POC 1.10 0.70 - 1.20 mg/dL 11/15/2024 7:34 AM EVENT MARKETING ASSISTANT [facility] GFR POC >60 >=60 mL/min/1.7 3 sq meter 11/15/2024 7:34 AM EVENT MARKETING ASSISTANT [facility] Comment:eGFR calculated with 2020 CKD-EPI equation. Vegetarian diet, extremely high or low muscle mass, and may affect results. Cystatin C with Glomerular Filtration Rate is a suitable alternative for these patients. Blood, whole 11/15/2024 7:34 AM EVENT MARKETING ASSISTANT 11/15/2024 7:40 AM EVENT MARKETING ASSISTANT Ron Meehan DO POINT OF CARE TESTI NG [facility] - [facility] CLOR# [id number] [address] [facility] [place] [id number] * (ABNORMAL) COMPREHENSIVE METABOLIC PANEL (11/15/2024 7:29 AM EVENT MARKETING ASSISTANT) SODIUM 137 136 - 145 mmol/L 11/15/2024 8:21 AM [facility] - . [facility] POTASSIUM 3.7 3.5 - 5.0 mmol/L 11/15/2024 8:21 AM [facility] - . [facility] CHLORIDE 101 98 - 107 mmol/L 11/15/2024 8:21 AM [facility] - . [facility] CO2 27 22 - 29 mmol/L 11/15/2024 8:21 AM [facility] - . [facility] CALCIUM 9.7 8.6 - 10.2 mg/dL 11/15/2024 8:21 AM [facility] [employer] - . [facility] BUN 17 6 - 20 mg/dL 11/15/2024 8:21 AM [facility] - . [facility] CREATININE 0.98 0.67 - 1.17 mg/dL 11/15/2024 8:21 AM [facility] - . [facility] GLUCOSE 94 74 - 99 mg/dL 11/15/2024 8:21 AM [facility] - . [facility] TOTAL PROTEIN 7.8 6.7 - 8.6 g/dL 11/15/2024 8:21 AM [facility] - . [facility] ALBUMIN 4.4 3.5 - 5.2 g/dL 11/15/2024 8:21 AM [facility] - . [facility] BILIRUBIN TOTAL 0.6 0.3 - 1.2 mg/dL 11/15/2024 8:21 AM [facility] - . [facility] ALKALINE PHOSPHATASE 112 40 - 129 U/L 11/15/2024 8:21 AM [facility] AST 50(H) <41 U/L 11/15/2024 8:21 AM [facility] ALT 51(H) <42 U/L 11/15/2024 8:21 AM [facility] GFR >60 >=60 mL/min/1.7 3 sq meter 11/15/2024 8:21 AM [facility] Comment:eGFR calculated with 2020 CKD-EPI equation. Vegetarian diet, extremely high or low muscle mass, and may affect results. Cystatin C with Glomerular Filtration Rate is a suitable alternative for these patients. ANION GAP 9 8 - 16 mmol/L 11/15/2024 8:21 AM [facility] [employer] [facility] Blood Venipuncture / Unknown 11/15/2024 7:29 AM EVENT MARKETING ASSISTANT 11/15/2024 7:33 AM [facility] - 11/15/2024 8:21 AM [facility] Samples containing indocyanine green cause interferences on Total and/or Direct Bilirubin and must not be measured. Ron Meehan DO CHEMISTRY ORDERABLE S [facility]# [id number] [address] [facility] [place] [address] * (ABNORMAL) CBC WITH DIFFERENTIAL (11/15/2024 7:29 AM EVENT MARKETING ASSISTANT) WBC 12.5(H) 4.0 - 9.8 K/uL 11/15/2024 7:45 AM [facility] [employer] [facility] RBC 4.72 4.50 - 5.40 M/uL 11/15/2024 7:45 AM [facility] [employer] HEMOGLOBIN 14.9 13.6 - 16.5 g/dL 11/15/2024 7:45 AM [facility] HEMATOCRIT 43.4 40.0 - 48.0 % 11/15/2024 7:45 AM [facility] [employer] MCV 91.9 82.0 - 99.0 fL 11/15/2024 7:45 AM EVENT MARKETING ASSISTANT [facility] MCH 31.6 27.2 - 32.6 pg 11/15/2024 7:45 AM EVENT MARKETING ASSISTANT [facility] MCHC 34.3 31.5 - 35.5 g/dL 11/15/2024 7:45 AM EVENT MARKETING ASSISTANT [facility] RDW 13.0 11.5 - 14.5 % 11/15/2024 7:45 AM EVENT MARKETING ASSISTANT [facility] RDW-STDEV 44.1 37.1 - 48.7 fL 11/15/2024 7:45 AM EVENT MARKETING ASSISTANT [facility] PLATELETS 314 140 - 350 K/uL 11/15/2024 7:45 AM EVENT MARKETING ASSISTANT [facility] MPV 9.8 9.3 - 12.4 fL 11/15/2024 7:45 AM EVENT MARKETING ASSISTANT [facility] NEUTROPHILS 64 % 11/15/2024 7:45 AM EVENT MARKETING ASSISTANT [facility] LYMPHOCYTES 24 % 11/15/2024 7:45 AM EVENT MARKETING ASSISTANT [facility] MONOCYTES 8 % 11/15/2024 7:45 AM EVENT MARKETING ASSISTANT [facility] EOSINOPHILS 4 % 11/15/2024 7:45 AM EVENT MARKETING ASSISTANT [facility] BASOPHILS 1 % 11/15/2024 7:45 AM EVENT MARKETING ASSISTANT [facility] IMMATURE GRANULOCYTES 0 % 11/15/2024 7:45 AM EVENT MARKETING ASSISTANT [facility] NEUTROPHIL ABSOLUTE 7.94(H) 1.90 - 7.00 K/uL 11/15/2024 7:45 AM EVENT MARKETING ASSISTANT [facility] LYMPHOCYTE ABSOLUTE 2.95 0.70 - 4.50 K/uL 11/15/2024 7:45 AM EVENT MARKETING ASSISTANT [facility] MONOCYTE ABSOLUTE 0.98 0.10 - 1.30 K/uL 11/15/2024 7:45 AM EVENT MARKETING ASSISTANT [facility] EOSINOPHIL ABSOLUTE 0.49 0.00 - 0.70 K/uL 11/15/2024 7:45 AM EVENT MARKETING ASSISTANT [facility] BASOPHILS ABSOLUTE 0.06 0.00 - 0.20 K/uL 11/15/2024 7:45 AM [facility] IMMATURE GRANULOCYTES ABSOLUTE 0.05(H) 0.00 - 0.03 K/uL 11/15/2024 7:45 AM [facility] Blood Venipuncture / Unknown 11/15/2024 7:29 AM EVENT MARKETING ASSISTANT 11/15/2024 7:33 AM EVENT MARKETING ASSISTANT Ron Meehan DO HEMATOLOGY ORDERABL ES Performing Organization Address [facility]/ZIP Co de Phone Number [facility] CLIA# [id number] [address] [place] [id number] * URINE CULTURE (11/15/2024 6:36 AM EVENT MARKETING ASSISTANT) CULTURE No growth at 24 hours 11/16/2024 7:59 AM [facility] Urine URINE SPECIMEN OBTAINED BY CLEAN CATCH PROCEDURE / Unknown Collection / Unknown 11/15/2024 6:36 AM EVENT MARKETING ASSISTANT 11/15/2024 6:42 AM EVENT MARKETING ASSISTANT Ron Meehan DO MICROBIOLOGY - GENE RAL ORDERABLES Performing Organization Address [facility]/ZIP Co de Phone Number [facility]# [id number] [address] [place] [address] * DRUG SCREEN, URINE (11/15/2024 6:36 AM EVENT MARKETING ASSISTANT) AMPHETAMINE QUAL, URINE Negative Negative 11/15/2024 10:34 AM [facility] [employer] [facility] BARBITURATE QUAL, URINE Negative Negative 11/15/2024 10:34 AM [facility] [employer] [facility] BENZODIAZEPINE QUAL, URINE Negative Negative 11/15/2024 10:34 AM [facility] [employer] [facility] COCAINE QUAL URINE Negative Negative 2023 10:34 AM [facility] [employer] [facility] OPIATE QUAL, URINE Negative Negative 2023 10:34 AM [facility] [employer] [facility] CANNABINOIDS QUAL, URINE Negative Negative 11/15/2024 10:34 AM [facility] PCP QUAL, URINE Negative Negative 10:34 AM [facility] OXYCODONE QUAL, URINE Negative Negative 11/15/2024 10:34 AM [facility] METHADONE QUAL, URINE Negative Negative 11/15/2024 10:34 AM [facility] FENTANYL QUAL, URINE Negative Negative 11/15/2024 10:34 AM [facility] CREATININE, URINE 167.0 40.0 - 278.0 mg/dL 11/15/2024 10:34 AM [facility] Comment:Reference Range vari es with fluid intake and diet. Urine URINE SPECIMEN OBTAINED BY CLEAN CATCH PROCEDURE / Unknown Collection / Unknown 11/15/2024 6:36 AM [facility] 11/15/2024 6:42 AM [facility] - 11/15/2024 10:34 AM [facility] This test is a qualitative screen. The [...] ?5 ng/mL Ron Meehan DO URINE ORDERABLES [facility] [employer] [facility] CLIA# [id number] [address] [facility] [address] * (ABNORMAL) URINALYSIS WITH REFLEX MICROSCOPIC (11/15/2024 6:36 AM EVENT MARKETING ASSISTANT) COLOR UA Yellow Pale to Dark Yellow 11/15/2024 7:04 AM [employer] [facility] CLARITY UA Clear Clear 11/15/2024 7:04 AM [facility] [employer] - [facility] SPECIFIC GRAVITY UA 1.021 1.003 - 1.035 11/15/2024 7:04 AM [facility] [employer] [facility] PH UA 5.0 5.0 - 8.0 11/15/2024 7:04 AM [facility] [employer] [facility] LEUKOCYTE ESTERASE UA 1+(A) Negative 11/15/2024 7:04 AM [facility] [employer] [facility] NITRITE UA Negative Negative 11/15/2024 7:04 AM [facility] [employer] [facility] PROTEIN UA Negative Negative 11/15/2024 7:04 AM [facility] [employer] [facility] GLUCOSE UA Negative Negative 11/15/2024 7:04 AM [facility] [employer] [facility] KETONES UA Trace(A) Negative 11/15/2024 7:04 AM [facility] [employer] [facility] UROBILINOGEN UA Normal <2.0 mg/dL 7:04 AM [facility] [employer] [facility] BILIRUBIN UA Negative Negative 11/15/2024 7:04 AM [facility] BLOOD UA Negative Negative 11/15/2024 7:04 AM [facility] WBC UA 26-50(A) 0 - 2 /hpf 11/15/2024 7:04 AM [facility]. [facility] RBC UA 3-5(A) 0 - 2 /hpf 11/15/2024 7:04 AM [facility]. [facility] BACTERIA UA Negative Negative /hpf 11/15/2024 7:04 AM [facility] EPITHELIAL CELLS, URINE 0-5 0 - 5 /hpf 11/15/2024 7:04 AM [facility]. [facility] Urine URINE SPECIMEN OBTAINED BY CLEAN CATCH PROCEDURE / Unknown Collection / Unknown 11/15/2024 6:36 AM EVENT MARKETING ASSISTANT 11/15/2024 6:42 AM EVENT MARKETING ASSISTANT Ron Meehan DO URINE ORDERABLES Performing Organization Address [facility]/State/ZIP Co de Phone Number [facility]# [id number] [facility] [place] [phone] documented in this encounter Visit Diagnoses Diagnosis [...] 0753, Routine Contrast Given 11/15/2024 7:53 AM EVENT MARKETING ASSISTANT 100 mL ketorolac (TORADOL) injection 10 mg 10 mg, IV, ONE TIME ONLY, 1 dose, On 11/15/24 at 0815, Routine Given 11/15/2024 8:15 AM EVENT MARKETING ASSISTANT 10 mg sodium chloride 0.9% bolus solution 1,000 mL 1,000 mL, IV, ONE TIME ONLY, 1 dose, On 11/15/24 at 0730, at 2,000 mL/hr, Administer over 30 Minutes, Routine Bolus 11/15/2024 7:30 AM EVENT MARKETING ASSISTANT 1,000 mL 2000 mL/hr sodium chloride flush injection 10 mL 10 mL, IV, ONE TIME ONLY, 1 dose, On 11/15/24 at 0800, Routine Given 11/15/2024 7:53 AM EVENT MARKETING ASSISTANT 10 mL documented in this encounter Active and Recently Administered Medications Times are shown in EVENT MARKETING ASSISTANT. Scheduled Medication Order 11/13/2024 11/14/2024 11/15/2024 iopamidoL [...]
--- OUTSIDE RECORDS SUMMARY | 2024-11-25 06:31 | XMS_ITS | Encounter Summary ---
Author Organization [facility] Address [address] [facility] Attn: Epic Prelude ADT [place] [address] Care Team Providers Care Paper Grader Name Role Phone Unavailable Primary Care Provider [...]
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
== END 2024-11-18 09:35 | disposition home or self-care (01) ==
PROVIDERS: Emergency Medicine; Emergency Provider Student in an Organized Health Care Education/Training Program
DX: M54.9 Dorsalgia, unspecified (principal); R74.01 Elevation of levels of liver transaminase levels; N12 Tubulo-interstitial nephritis, not specified as acute or chronic; D72.829 Elevated white blood cell count, unspecified; I10 Essential (primary) hypertension; J45.909 Unspecified asthma, uncomplicated; Z91.148 Patient's other noncompliance with medication regimen for other reason
CPT/HCPCS: 36415; 80053; 81001; 83690; 85025; 87086; 96374; 96375; 99284; A9270; J1885